=== PATIENT | male | born 1975 | race Caucasian/White ===

== ENCOUNTER 2020-07-22 04:58 | Inpatient (IN) | payer OTHER ==
[~2020-07-22] VITALS: Ht 165.1 cm; Wt 80.7 kg
[2020-07-22] MEDS ORDERED: MORPHINE SULFATE 4 MG/ML CPJ (NOT FOR IM USE) IV STA (06:35)
[2020-07-22 06:46] LABS: BASOPHILS % 0.4 % (0.0-2.0); EOSINOPHILS % 3.2 % (0.0-5.0); HEMATOCRIT. 32.3 % (42.0-52.0); LYMPHOCYTES % 14.4 % (20.0-50.0); MEAN CORPUSCULAR HEMOGLOBIN 32.8 pg (28.0-32.0); MEAN CORPUSCULAR VOLUME 96.7 fL (80.0-94.0); MEAN PLATELET VOLUME 7.9 fl (7.4-10.4); MONOCYTES % 7.7 % (2.0-8.0); NEUTROPHILS % 74.3 % (40.0-76.0); PLATELET 272 x1000/uL (130-400); RED BLOOD CELL COUNT 3.34 mill/uL (4.7-6.1); RED CELL DISTRIBUTION WIDTH 14.5 % (11.6-14.6)
[2020-07-22 06:52] LABS: CHLORIDE 112 mEq/L (98-107)
[2020-07-22 06:57] LABS: PROTHROMBIN TIME 10.3 sec (9.6-11.0)
[2020-07-22] MEDS ORDERED: CLONIDINE 0.1MG TABLET PO PRN (13:15)
[2020-07-22] MEDS ORDERED: IPRATROPIUM/ALBUTEROL 0.5-3(2.5)MG/3ML NEB HHN PRN (13:15)
[2020-07-22] MEDS ORDERED: DIPHENHYDRAMINE 50MG/ML VIAL IV PRN (13:15)
[2020-07-22 14:28] LABS: PHOSPHORUS 6.8 mg/dL (2.5-4.9)
[2020-07-22 15:39] VITALS: BP 174/103
[2020-07-22] MEDS ORDERED: CLONIDINE 0.1MG TABLET PO NR (16:23)
[2020-07-22] MEDS ORDERED: CLON0.1T PO (17:09)
[2020-07-22] MEDS ORDERED: ATOR20TA65 MT (17:09)
[2020-07-22] MEDS ORDERED: ASPI-1497 PO (17:10)
[2020-07-22] MEDS: LISINOPRIL 40MG TABLET PO SCH (17:36)
[2020-07-22 20:42] VITALS: BP 124/85
[2020-07-23] VITALS: BP 121/82
[2020-07-23] MEDS: ACETAMINOPHEN 325MG TABLET PO PRN ×2 (01:08→07:22)
[2020-07-23 04:00] VITALS: BP 116/79
[2020-07-23 08:00] VITALS: BP 131/70
[2020-07-23 08:16] LABS: BASOPHILS % 0.8 % (0.0-2.0); EOSINOPHILS % 2.8 % (0.0-5.0); HEMATOCRIT. 31.1 % (42.0-52.0); HEMOGLOBIN. 10.8 g/dL (14.0-18.0); LYMPHOCYTES % 19.5 % (20.0-50.0); MEAN CORPUSCULAR HEMOGLOBIN 32.9 pg (28.0-32.0); MEAN CORPUSCULAR VOLUME 94.7 fL (80.0-94.0); MEAN PLATELET VOLUME 7.9 fl (7.4-10.4); MONOCYTES % 8.1 % (2.0-8.0); NEUTROPHILS % 68.8 % (40.0-76.0); PLATELET 269 x1000/uL (130-400); RED BLOOD CELL COUNT 3.29 mill/uL (4.7-6.1); RED CELL DISTRIBUTION WIDTH 14.3 % (11.6-14.6)
[2020-07-23] MEDS: LISINOPRIL 40MG TABLET PO SCH (08:30)
[2020-07-23 09:00] LABS: CHLORIDE 104 mEq/L (98-107)
[2020-07-23 09:08] LABS: PHOSPHORUS 5.6 mg/dL (2.5-4.9)
[2020-07-23 09:09] LABS: LDL CHOLESTEROL 77 mg/dL (5-100)
[2020-07-23 09:11] LABS: HDL CHOLESTEROL 32 mg/dL (40-59)
[2020-07-23 11:18] VITALS: BP 131/75
== END 2020-07-23 11:45 | disposition home or self-care (01) | DRG 470 ==
LOC: ER 05:23 → 6WST 12:04 → EDBEDREQ 12:27 → ENRESERV 14:59
PROVIDERS: ADMIT Internal Medicine; ATTEND Internal Medicine
PROC: 5A1D70Z Performance of Urinary Filtration, Intermittent, Less than 6 Hours Per Day (ICD-10-PCS; principal; 2020-07-22)
DX: I12.0 Hypertensive chronic kidney disease with stage 5 chronic kidney disease or end stage renal disease (principal); N18.6 End stage renal disease; D64.9 Anemia, unspecified; E78.5 Hyperlipidemia, unspecified; E87.2 Acidosis; Z99.2 Dependence on renal dialysis
CPT/HCPCS: 36415; 71045; 80053; 80061; 83735; 84100; 84443; 85025; 93005; 99285; J2270

== ENCOUNTER 2020-09-27 01:31 | Emergency (ER) | payer OTHER ==
[~2020-09-27] VITALS: Ht 172.7 cm; Wt 80.0 kg
[~2020-09-27 01:31] MED LIST: ASPI-1497 PO; ATOR20TA65 MT; CLON0.1T PO
[2020-09-27 02:40] LABS: BASOPHILS % 0.8 % (0.0-2.0); EOSINOPHILS % 2.6 % (0.0-5.0); HEMATOCRIT. 35.7 % (42.0-52.0); HEMOGLOBIN. 12.1 g/dL (14.0-18.0); LYMPHOCYTES % 18.8 % (20.0-50.0); MEAN CORPUSCULAR HEMOGLOBIN 31.8 pg (28.0-32.0); MEAN CORPUSCULAR VOLUME 93.7 fL (80.0-94.0); MEAN PLATELET VOLUME 7.6 fl (7.4-10.4); MONOCYTES % 6.2 % (2.0-8.0); NEUTROPHILS % 71.6 % (40.0-76.0); PLATELET 253 x1000/uL (130-400); RED BLOOD CELL COUNT 3.81 mill/uL (4.7-6.1); RED CELL DISTRIBUTION WIDTH 14.7 % (11.6-14.6)
[2020-09-27 02:45] LABS: CHLORIDE 102 mEq/L (98-107)
[2020-09-27 02:50] LABS: ETHANOL BLOOD 213 mg/dL
[2020-09-27 09:08] VITALS: BP 155/90
== END 2020-09-27 09:51 | disposition home or self-care (01) ==
LOC: ER 01:31
DX: F10.129 Alcohol abuse with intoxication, unspecified (principal); I12.0 Hypertensive chronic kidney disease with stage 5 chronic kidney disease or end stage renal disease; N18.6 End stage renal disease; Z79.82 Long term (current) use of aspirin; Y90.7 Blood alcohol level of 200-239 mg/100 ml
CPT/HCPCS: 36415; 70450; 71045; 80053; 80320; 84484; 85025; 93005; 99285; Z7610; G0480

== ENCOUNTER 2021-04-11 09:53 | Emergency (ER) | payer OTHER ==
[~2021-04-11] VITALS: Ht 165.1 cm; Wt 76.0 kg
[2021-04-11] MEDS ORDERED: CLONIDINE 0.2MG TABLET PO ONE (10:30)
[2021-04-11] MEDS ORDERED: ACETAMINOPHEN 325MG TABLET PO ONE (10:30)
[2021-04-11] MEDS ORDERED: ACET-2708 MT (11:18)
[2021-04-11 11:29] VITALS: BP 165/89
== END 2021-04-11 11:37 | disposition home or self-care (01) ==
LOC: ER 09:53
DX: M79.645 Pain in left finger(s) (principal); I10 Essential (primary) hypertension
CPT/HCPCS: 73140; 99283

== ENCOUNTER 2021-08-01 20:55 | Emergency (ER) | payer MEDICAID, OTHER ==
[~2021-08-01] VITALS: Ht 165.1 cm; Wt 76.0 kg
[~2021-08-01 20:55] MED LIST changes: +ACET-2708 MT
[2021-08-02 02:37] LABS: BASOPHILS % 1.1 % (0.0-2.0); EOSINOPHILS % 2.8 % (0.0-5.0); LYMPHOCYTES % 17.1 % (20.0-50.0); MEAN CORPUSCULAR HEMOGLOBIN 30.5 pg (28.0-32.0); MEAN CORPUSCULAR VOLUME 90.9 fL (80.0-94.0); MEAN PLATELET VOLUME 8.1 fl (7.4-10.4); MONOCYTES % 10.4 % (2.0-8.0); NEUTROPHILS % 68.6 % (40.0-76.0); PLATELET 322 x1000/uL (130-400); RED BLOOD CELL COUNT 2.97 mill/uL (4.7-6.1); RED CELL DISTRIBUTION WIDTH 15.4 % (11.6-14.6)
[2021-08-02 03:30] VITALS: BP 199/114
[2021-08-02] MEDS ORDERED: DIPHENHYDRAMINE 25MG CAPSULE PO ONE (03:45)
== END 2021-08-02 04:00 | disposition home or self-care (01) ==
LOC: ER 20:55
DX: I12.0 Hypertensive chronic kidney disease with stage 5 chronic kidney disease or end stage renal disease (principal); N18.6 End stage renal disease; Z99.2 Dependence on renal dialysis; Z79.82 Long term (current) use of aspirin; Z87.891 Personal history of nicotine dependence
CPT/HCPCS: 36415; 80048; 85025; 93005; 99283; Q0163; A4565

== ENCOUNTER 2021-08-06 09:00 | Inpatient (IN) | payer OTHER ==
[~2021-08-06] VITALS: Ht 165.1 cm; Wt 71.7 kg
[2021-08-06 10:04] LABS: CHLORIDE 106 mEq/L (98-107)
[2021-08-06 10:08] LABS: BASOPHILS % 1.5 % (0.0-2.0); EOSINOPHILS % 4.3 % (0.0-5.0); HEMATOCRIT. 25.2 % (42.0-52.0); HEMOGLOBIN. 8.4 g/dL (14.0-18.0); LYMPHOCYTES % 20.4 % (20.0-50.0); MEAN CORPUSCULAR HEMOGLOBIN 31.4 pg (28.0-32.0); MEAN CORPUSCULAR VOLUME 94.8 fL (80.0-94.0); MEAN PLATELET VOLUME 8.5 fl (7.4-10.4); MONOCYTES % 8.8 % (2.0-8.0); PLATELET 276 x1000/uL (130-400); RED BLOOD CELL COUNT 2.66 mill/uL (4.7-6.1); RED CELL DISTRIBUTION WIDTH 15.9 % (11.6-14.6)
[2021-08-06] MEDS ORDERED: FUROSEMIDE 100MG/10ML VIAL IV STA (11:06)
[2021-08-06] MEDS ORDERED: SODIUM POLYSTYRENE SULFONATE 15 G/60 ML BOT PO ONE (11:15)
[2021-08-06] MEDS ORDERED: INSULIN REGULAR (HUMULIN R) 300UNITS/3ML VIAL IV ONE (11:15)
[2021-08-06] MEDS ORDERED: SODIUM BICARBONATE 8.4% 1 MEQ/ML 50ML SYR IV ONE (11:15)
[2021-08-06] MEDS ORDERED: CALCIUM CHLORIDE 1GM/10ML SYR IV ONE (11:15)
[2021-08-06] MEDS ORDERED: DEXTROSE 50% WATER 50ML SYRINGE IV ONE (11:15)
[2021-08-06] MEDS ORDERED: ALBUTEROL (0.083%) 2.5MG/3ML NEB HHN ONE (11:15)
[2021-08-06] MEDS ORDERED: SODIUM POLYSTYRENE SULFONATE 15 G/60 ML BOT PO NR (13:30)
[2021-08-06] MEDS ORDERED: SODIUM BICARBONATE 8.4% 1 MEQ/ML 50ML SYR IV NR (13:30)
[2021-08-06 15:08] LABS: HEPATITIS B SURFACE ANTIGEN NEGATIVE
[2021-08-06] MEDS: NIFEDIPINE XL 60MG TAB PO SCH (15:40)
[2021-08-06] MEDS ORDERED: HEPARIN SODIUM 1,000 UNIT/1ML VIAL IV NR (16:45)
[2021-08-06] MEDS ORDERED: LABETALOL 5MG/ML SYR 20 MG/4 ML SYRINGE IV NR (18:00)
[2021-08-06] MEDS: HYDRALAZINE HCL 50MG TABLET PO SCH (21:31)
[2021-08-07] VITALS: BP 144/77
[2021-08-07] MEDS: CLONIDINE 0.1MG TABLET PO PRN ×3 (00:28→18:39)
[2021-08-07] MEDS: ACETAMINOPHEN 325MG TABLET PO PRN ×3 (00:29→12:30)
[2021-08-07] MEDS: ONDANSETRON HCL 4MG/2ML INJ IV PRN (04:54)
[2021-08-07 07:00] LABS: BASOPHILS % 1.4 % (0.0-2.0); EOSINOPHILS % 3.7 % (0.0-5.0); HEMATOCRIT. 26.9 % (42.0-52.0); HEMOGLOBIN. 9.2 g/dL (14.0-18.0); MEAN CORPUSCULAR HEMOGLOBIN 30.9 pg (28.0-32.0); MEAN CORPUSCULAR VOLUME 90.3 fL (80.0-94.0); MEAN PLATELET VOLUME 8.5 fl (7.4-10.4); MONOCYTES % 8.5 % (2.0-8.0); NEUTROPHILS % 70.4 % (40.0-76.0); PLATELET 302 x1000/uL (130-400); RED BLOOD CELL COUNT 2.98 mill/uL (4.7-6.1); RED CELL DISTRIBUTION WIDTH 15.6 % (11.6-14.6)
[2021-08-07 07:54] LABS: PHOSPHORUS 8.2 mg/dL (2.5-4.9)
[2021-08-07 08:00] VITALS: BP 162/102
[2021-08-07] MEDS: HYDRALAZINE HCL 50MG TABLET PO SCH (09:36)
[2021-08-07] MEDS: NIFEDIPINE XL 60MG TAB PO SCH ×2 (09:36→20:49)
[2021-08-07 12:00] VITALS: BP 146/79
[2021-08-07] MEDS: CALCIUM ACETATE 667MG CAPSULE PO SCH ×2 (12:15→18:12)
[2021-08-07 16:00] VITALS: BP 152/80
[2021-08-07 20:42] VITALS: BP 157/101
[2021-08-07] MEDS: HYDRALAZINE HCL 100MG TABLET PO SCH (20:49)
[2021-08-07] MEDS ORDERED: EPOETIN ALFA-EPBX 4,000 UNIT/ML VIAL SUBCUT SCH (21:00)
[2021-08-08] VITALS: BP 171/98
[2021-08-08 04:00] VITALS: BP 157/110
[2021-08-08] MEDS: CLONIDINE 0.1MG TABLET PO PRN (05:04)
[2021-08-08 07:21] LABS: BASOPHILS % 1.5 % (0.0-2.0); EOSINOPHILS % 4.3 % (0.0-5.0); HEMATOCRIT. 27.5 % (42.0-52.0); HEMOGLOBIN. 9.5 g/dL (14.0-18.0); LYMPHOCYTES % 23.1 % (20.0-50.0); MEAN CORPUSCULAR HEMOGLOBIN 31.1 pg (28.0-32.0); MEAN CORPUSCULAR VOLUME 90.2 fL (80.0-94.0); MEAN PLATELET VOLUME 8.5 fl (7.4-10.4); MONOCYTES % 7.8 % (2.0-8.0); NEUTROPHILS % 63.3 % (40.0-76.0); PLATELET 311 x1000/uL (130-400); RED BLOOD CELL COUNT 3.04 mill/uL (4.7-6.1); RED CELL DISTRIBUTION WIDTH 15.3 % (11.6-14.6)
[2021-08-08 07:51] LABS: PHOSPHORUS 8.2 mg/dL (2.5-4.9)
[2021-08-08 08:00] VITALS: BP 155/101
[2021-08-08] MEDS: HYDRALAZINE HCL 100MG TABLET PO SCH ×3 (08:31→21:37)
[2021-08-08] MEDS: CALCIUM ACETATE 667MG CAPSULE PO SCH ×3 (08:31→17:45)
[2021-08-08] MEDS: NIFEDIPINE XL 60MG TAB PO SCH ×2 (08:31→21:37)
[2021-08-08] MEDS ORDERED: OMEP20CA14 PO (11:36)
[2021-08-08 12:00] VITALS: BP 145/90
[2021-08-08 16:00] VITALS: BP 159/94
[2021-08-08] MEDS: LOSARTAN POTASSIUM 100 MG TABLET PO SCH ×2 (16:30→17:44)
[2021-08-08] MEDS: OMEPRAZOLE 20MG CAPSULE EXTENDED RELEASE PO SCH (17:44)
[2021-08-08] MEDS: ACETAMINOPHEN 325MG TABLET PO PRN (17:45)
[2021-08-08] MEDS: ONDANSETRON HCL 4MG/2ML INJ IV PRN (18:19)
[2021-08-08] MEDS ORDERED: ZOLPIDEM TARTRATE 5MG TABLET PO PRN ×2 (19:45→20:00)
[2021-08-08 20:00] VITALS: BP 154/95
[2021-08-09] VITALS: BP 144/97
[2021-08-09] MEDS: ONDANSETRON HCL 4MG/2ML INJ IV PRN (02:22)
[2021-08-09] MEDS: LORAZEPAM 1MG TABLET PO PRN ×2 (03:43→09:28)
[2021-08-09] MEDS: CLONIDINE 0.1MG TABLET PO PRN (03:43)
[2021-08-09 04:00] VITALS: BP 183/99
[2021-08-09] MEDS: HYDRALAZINE HCL 100MG TABLET PO SCH ×2 (06:00→14:47)
[2021-08-09] MEDS: OMEPRAZOLE 20MG CAPSULE EXTENDED RELEASE PO SCH (06:46)
[2021-08-09 08:00] VITALS: BP 170/78
[2021-08-09] MEDS: NIFEDIPINE XL 60MG TAB PO SCH (08:40)
[2021-08-09] MEDS: CALCIUM ACETATE 667MG CAPSULE PO SCH ×2 (08:40→14:47)
[2021-08-09] MEDS: LOSARTAN POTASSIUM 100 MG TABLET PO SCH (08:40)
[2021-08-09] MEDS: ACETAMINOPHEN 325MG TABLET PO PRN (09:28)
[2021-08-09 09:46] LABS: PHOSPHORUS 5.8 mg/dL (2.5-4.9)
[2021-08-09 09:55] LABS: BASOPHILS % 1.3 % (0.0-2.0); EOSINOPHILS % 5.6 % (0.0-5.0); HEMATOCRIT. 27.8 % (42.0-52.0); HEMOGLOBIN. 9.6 g/dL (14.0-18.0); LYMPHOCYTES % 15.8 % (20.0-50.0); MEAN CORPUSCULAR HEMOGLOBIN 30.8 pg (28.0-32.0); MEAN CORPUSCULAR VOLUME 89.7 fL (80.0-94.0); MONOCYTES % 6.8 % (2.0-8.0); NEUTROPHILS % 70.5 % (40.0-76.0); PLATELET 323 x1000/uL (130-400); RED CELL DISTRIBUTION WIDTH 15.9 % (11.6-14.6)
[2021-08-09] MEDS ORDERED: CLONIDINE 0.1MG TABLET PO SCH (14:00)
[2021-08-09 14:07] VITALS: BP 155/73
== END 2021-08-09 16:49 | disposition home or self-care (01) | DRG 425 ==
LOC: ER 09:00 → MICUSO 12:55 → EDBEDREQ 13:06 → EDBEDREQTM 13:06 → 8WST 21:30
PROVIDERS: ADMIT Internal Medicine; ATTEND Internal Medicine
PROC: 5A1D70Z Performance of Urinary Filtration, Intermittent, Less than 6 Hours Per Day (ICD-10-PCS; principal; 2021-08-06)
PROC: 5A1D70Z Performance of Urinary Filtration, Intermittent, Less than 6 Hours Per Day (ICD-10-PCS; 2021-08-08)
DX: E87.5 Hyperkalemia (principal); E43 Unspecified severe protein-calorie malnutrition; I12.0 Hypertensive chronic kidney disease with stage 5 chronic kidney disease or end stage renal disease; E83.51 Hypocalcemia; I16.0 Hypertensive urgency; N18.6 End stage renal disease; D64.9 Anemia, unspecified; E78.5 Hyperlipidemia, unspecified; Z20.822 Contact with and (suspected) exposure to COVID-19; Z82.49 Family history of ischemic heart disease and other diseases of the circulatory system; Z68.26 Body mass index [BMI] 26.0-26.9, adult; Z99.2 Dependence on renal dialysis; Z79.899 Other long term (current) drug therapy; Z79.82 Long term (current) use of aspirin
CPT/HCPCS: 36415; 71045; 76770; 80048; 80053; 83735; 83880; 84100; 84484; 85025; 86705; 86706; 86709; 86803; 87340; 93005; 97161; 99291; J0885; J1644; J1815; J1940; J2405; J3490; U0003; U0005

== ENCOUNTER 2021-09-01 04:03 | Emergency (ER) | payer OTHER ==
[~2021-09-01] VITALS: Ht 165.1 cm; Wt 78.0 kg
[~2021-09-01 04:03] MED LIST changes: +OMEP20CA14 PO
[2021-09-01 05:56] LABS: EOSINOPHILS % 4.5 % (0.0-5.0); HEMATOCRIT. 24.5 % (42.0-52.0); HEMOGLOBIN. 8.4 g/dL (14.0-18.0); LYMPHOCYTES % 22.5 % (20.0-50.0); MEAN CORPUSCULAR HEMOGLOBIN 31.3 pg (28.0-32.0); MEAN CORPUSCULAR VOLUME 91.3 fL (80.0-94.0); MEAN PLATELET VOLUME 6.9 fl (7.4-10.4); MONOCYTES % 10.2 % (2.0-8.0); NEUTROPHILS % 61.8 % (40.0-76.0); PLATELET 256 x1000/uL (130-400); RED BLOOD CELL COUNT 2.69 mill/uL (4.7-6.1); RED CELL DISTRIBUTION WIDTH 16.4 % (11.6-14.6)
[2021-09-01 06:02] LABS: CHLORIDE 109 mEq/L (98-107)
[2021-09-01 06:02] LABS: CLARITY URINE CLEAR (CLEAR); COLOR URINE YELLOW (YELLOW); KETONES URINE NEGATIVE (NEGATIVE); LEUKOCYTE ESTERASE URINE NEGATIVE (NEGATIVE); NITRITE URINE NEGATIVE (NEGATIVE); OCCULT BLOOD URINE 1+ (NEGATIVE); PH URINE 8.5 (4.5-8.0); PROTEIN URINE 4+ (NEGATIVE); SPECIFIC GRAVITY URINE 1.017 (1.005-1.030); UROBILINOGEN URINE 0.2 E.U./dL (0.2-1.0)
[2021-09-01 06:06] LABS: PROTHROMBIN TIME 10.9 sec (9.6-11.0)
[2021-09-01] MEDS ORDERED: KETOROLAC 30MG/ML VIAL IV STA (06:08)
[2021-09-01] MEDS ORDERED: METOCLOPRAMIDE HCL 10MG/2ML VIAL IV ONE (06:15)
[2021-09-01 07:19] VITALS: BP 150/86
== END 2021-09-01 07:23 | disposition home or self-care (01) ==
LOC: ER 04:03
DX: D63.1 Anemia in chronic kidney disease (principal); I12.0 Hypertensive chronic kidney disease with stage 5 chronic kidney disease or end stage renal disease; N18.6 End stage renal disease; Z99.2 Dependence on renal dialysis; Z79.82 Long term (current) use of aspirin
CPT/HCPCS: 36415; 71045; 80053; 81003; 85025; 85610; 86850; 86900; 86901; 93005; 96374; 96375; 99285; J1885; J2765

== ENCOUNTER 2021-12-09 18:55 | Inpatient (IN) | payer OTHER, MEDICAID ==
[~2021-12-09] VITALS: Ht 172.7 cm; Wt 84.4 kg
[2021-12-09] MEDS ORDERED: ASPIRIN 325MG EC TABLET PO ONE (22:00)
[2021-12-09 22:09] LABS: BASOPHILS % 1.1 % (0.0-2.0); EOSINOPHILS % 6.5 % (0.0-5.0); HEMATOCRIT. 36.8 % (42.0-52.0); HEMOGLOBIN. 12.1 g/dL (14.0-18.0); LYMPHOCYTES % 22.6 % (20.0-50.0); MEAN CORPUSCULAR HEMOGLOBIN 28.9 pg (28.0-32.0); MEAN PLATELET VOLUME 6.8 fl (7.4-10.4); MONOCYTES % 9.5 % (2.0-8.0); NEUTROPHILS % 60.3 % (40.0-76.0); PLATELET 256 x1000/uL (130-400); RED BLOOD CELL COUNT 4.19 mill/uL (4.7-6.1); RED CELL DISTRIBUTION WIDTH 19.9 % (11.6-14.6)
[2021-12-09 22:14] LABS: CHLORIDE 99 mEq/L (98-107)
[2021-12-09] MEDS ORDERED: NICARDIPINE 50 MG in SODIUM CHLORIDE 0.9% 230 ML IV ONE (23:30)
[2021-12-09] MEDS ORDERED: HYDROCODONE/ACETAMINOPHEN 5/325MG TABLET PO ONE (23:45)
[2021-12-10] MEDS: NICARDIPINE 40 MG/200 ML PREMIX 200 ML IV PRN ×2 (00:18→09:04)
[2021-12-10] MEDS ORDERED: ACETAMINOPHEN 325MG TABLET PO PRN (08:45)
[2021-12-10] MEDS ORDERED: HYDROCODONE/ACETAMINOPHEN 10/325MG TABLET PO PRN (09:00)
[2021-12-10] MEDS: NIFEDIPINE XL 30MG TAB PO SCH (09:51)
[2021-12-10] MEDS: ASPIRIN 81MG TABLET PO SCH (09:51)
[2021-12-10] MEDS: ONDANSETRON HCL 4MG/2ML INJ IV PRN ×2 (10:12→21:04)
[2021-12-10 15:40] VITALS: BP_SYST 170; BP_DIAS 88; BP_DIAS 90
[2021-12-10] MEDS ORDERED: ASPIRIN 81MG TABLET PO SCH (17:00)
[2021-12-10] MEDS ORDERED: HYDROCODONE/ACETAMINOPHEN 5/325MG TABLET PO PRN (17:15)
[2021-12-10 18:20] VITALS: BP 188/107
[2021-12-10] MEDS: CLONIDINE 0.1MG TABLET PO PRN (18:24)
[2021-12-10] MEDS: CINACALCET HCL 30MG TABLET PO SCH (18:25)
[2021-12-10] MEDS: HYDROCODONE/ACETAMINOPHEN 10/325MG TABLET PO PRN (18:25)
[2021-12-10] MEDS: LABETALOL HCL 100MG TABLET PO SCH (18:26)
[2021-12-10] MEDS: LOSARTAN POTASSIUM 50 MG TABLET PO SCH (18:26)
[2021-12-10] MEDS: FUROSEMIDE 20MG TABLET PO SCH (18:26)
[2021-12-10] MEDS: CALCIUM ACETATE 667MG CAPSULE PO SCH (18:26)
[2021-12-10 20:00] VITALS: BP 162/97
[2021-12-11] VITALS (7 sets, daily range): BP systolic 118–197; BP diastolic 68–112
[2021-12-11] MEDS: CLONIDINE 0.1MG TABLET PO PRN ×5 (01:50→22:04)
[2021-12-11] MEDS: NIFEDIPINE XL 30MG TAB PO SCH (04:33)
[2021-12-11] MEDS: HYDROCODONE/ACETAMINOPHEN 10/325MG TABLET PO PRN ×3 (06:08→17:46)
[2021-12-11] MEDS: LABETALOL HCL 100MG TABLET PO SCH ×2 (09:33→17:47)
[2021-12-11] MEDS: ASPIRIN 81MG TABLET PO SCH (09:33)
[2021-12-11] MEDS: FUROSEMIDE 20MG TABLET PO SCH (09:34)
[2021-12-11] MEDS: LOSARTAN POTASSIUM 50 MG TABLET PO SCH ×2 (09:34→17:46)
[2021-12-11] MEDS: CALCIUM ACETATE 667MG CAPSULE PO SCH ×3 (09:36→17:47)
[2021-12-11] MEDS: ONDANSETRON HCL 4MG/2ML INJ IV PRN (12:45)
[2021-12-11] MEDS: CINACALCET HCL 30MG TABLET PO SCH (17:45)
[2021-12-11] MEDS: MINOXIDIL 2.5MG TABLET PO SCH ×2 (17:47→22:04)
[2021-12-11] MEDS ORDERED: MINOXIDIL 2.5MG TABLET PO SCH (21:00)
[2021-12-11] MEDS: DIPHENHYDRAMINE 50MG/ML VIAL IV PRN (22:03)
[2021-12-12] MEDS: CLONIDINE 0.1MG TABLET PO PRN ×2 (04:47→10:48)
[2021-12-12 08:00] VITALS: BP 201/107
[2021-12-12] MEDS: ASPIRIN 81MG TABLET PO SCH (08:18)
[2021-12-12] MEDS: LABETALOL HCL 100MG TABLET PO SCH (08:19)
[2021-12-12] MEDS: FUROSEMIDE 20MG TABLET PO SCH (08:20)
[2021-12-12] MEDS: LOSARTAN POTASSIUM 50 MG TABLET PO SCH ×2 (08:20→17:26)
[2021-12-12] MEDS: CALCIUM ACETATE 667MG CAPSULE PO SCH ×3 (08:22→17:26)
[2021-12-12] MEDS: MINOXIDIL 2.5MG TABLET PO SCH ×2 (08:36→20:28)
[2021-12-12] MEDS: HYDROCODONE/ACETAMINOPHEN 10/325MG TABLET PO PRN (08:42)
[2021-12-12] MEDS ORDERED: NIFEDIPINE XL 60MG TAB PO SCH (09:00)
[2021-12-12 12:00] VITALS: BP 152/83
[2021-12-12 16:00] VITALS: BP 155/88
[2021-12-12] MEDS ORDERED: NIFEDIPINE XL 30MG TAB PO NR (16:15)
[2021-12-12] MEDS: CINACALCET HCL 30MG TABLET PO SCH (17:26)
[2021-12-12 20:00] VITALS: BP 140/85
[2021-12-12] MEDS: NIFEDIPINE XL 60MG TAB PO SCH (20:28)
[2021-12-12] MEDS: DIPHENHYDRAMINE 50MG/ML VIAL IV PRN (20:28)
[2021-12-12] MEDS: METOPROLOL TARTRATE 50MG TABLET PO SCH (20:28)
[2021-12-12] MEDS ORDERED: TERAZOSIN HCL 5MG CAPSULE PO SCH (21:00)
[2021-12-13] VITALS (7 sets, daily range): BP systolic 121–167; BP diastolic 68–92
[2021-12-13] MEDS: HYDROCODONE/ACETAMINOPHEN 10/325MG TABLET PO PRN (02:43)
[2021-12-13] MEDS: DIPHENHYDRAMINE 50MG/ML VIAL IV PRN ×2 (04:28→12:48)
[2021-12-13] MEDS ORDERED: SODIUM POLYSTYRENE SULFONATE 15 G/60 ML BOT PO ONE (08:00)
[2021-12-13] MEDS ORDERED: SODIUM POLYSTYRENE SULFONATE 15 G/60 ML BOT PO NR (08:00)
[2021-12-13] MEDS: FUROSEMIDE 20MG TABLET PO SCH (08:33)
[2021-12-13] MEDS: ASPIRIN 81MG TABLET PO SCH (08:33)
[2021-12-13] MEDS: LOSARTAN POTASSIUM 50 MG TABLET PO SCH ×2 (08:33→16:58)
[2021-12-13] MEDS: CALCIUM ACETATE 667MG CAPSULE PO SCH ×3 (08:33→18:48)
[2021-12-13] MEDS: METOPROLOL TARTRATE 50MG TABLET PO SCH (08:34)
[2021-12-13] MEDS: NIFEDIPINE XL 60MG TAB PO SCH (08:34)
[2021-12-13] MEDS: MINOXIDIL 2.5MG TABLET PO SCH (08:35)
[2021-12-13] MEDS ORDERED: LOSA50TA3 PO (09:01)
[2021-12-13] MEDS ORDERED: METO-539 PO (09:01)
[2021-12-13] MEDS ORDERED: MINO2.5T19 PO (09:01)
[2021-12-13] MEDS ORDERED: NIFE-32 PO (09:01)
[2021-12-13] MEDS ORDERED: CLON1PAT10 TD (09:01)
[2021-12-13] MEDS ORDERED: TERA5CAP4 PO (09:01)
[2021-12-13] MEDS: CINACALCET HCL 30MG TABLET PO SCH (16:58)
[2021-12-13] MEDS ORDERED: CLONIDINE HCL 0.1MG/24HR PATCH TD ONE (18:45)
[2021-12-13] MEDS ORDERED: CLONIDINE HCL 0.1MG/24HR PATCH TD SCH (19:00)
[2021-12-13] MEDS ORDERED: CLON1PAT11 TP (20:07)
[2021-12-13] MEDS ORDERED: TERA5CAP4 MT (20:08)
[2021-12-13] MEDS ORDERED: MINO2.5T2 MT (20:08)
[2021-12-13] MEDS ORDERED: LOSA50TA41 MT (20:08)
[2021-12-13] MEDS ORDERED: METO-539 MT (20:08)
[2021-12-13] MEDS ORDERED: NIFE-32 MT (20:08)
== END 2021-12-13 21:05 | disposition home or self-care (01) | DRG 304 ==
LOC: ER 18:55 → MICUSO 23:32 → 6WST 12-10 15:20
PROVIDERS: ADMIT Internal Medicine; ATTEND Internal Medicine
PROC: 5A1D70Z Performance of Urinary Filtration, Intermittent, Less than 6 Hours Per Day (ICD-10-PCS; principal; 2021-12-11)
DX: I16.0 Hypertensive urgency (principal); N18.6 End stage renal disease; I47.1 Supraventricular tachycardia; E46 Unspecified protein-calorie malnutrition; R07.89 Other chest pain; I13.11 Hypertensive heart and chronic kidney disease without heart failure, with stage 5 chronic kidney disease, or end stage renal disease; I25.10 Atherosclerotic heart disease of native coronary artery without angina pectoris; I08.1 Rheumatic disorders of both mitral and tricuspid valves; I27.20 Pulmonary hypertension, unspecified; Z20.822 Contact with and (suspected) exposure to COVID-19; D64.9 Anemia, unspecified; Z99.2 Dependence on renal dialysis; I25.2 Old myocardial infarction; Z68.28 Body mass index [BMI] 28.0-28.9, adult; Z79.899 Other long term (current) drug therapy; Z79.82 Long term (current) use of aspirin
CPT/HCPCS: 36415; 71045; 80048; 80053; 83880; 84484; 85025; 87426; 93005; 93306; 99285; J1200; J2405; J3490; J7050

== ENCOUNTER 2022-03-18 14:15 | Inpatient (IN) | payer MEDICAID, OTHER ==
[~2022-03-18] VITALS: Ht 165.1 cm; Wt 80.0 kg
[~2022-03-18 14:15] MED LIST changes: -ATOR20TA65 MT; +ATOR20TA65 PO; +CLON1PAT10 TD; +CLON1PAT11 TP; +LOSA50TA3 PO; +LOSA50TA41 MT; +METO-539 MT; +METO-539 PO; +MINO2.5T19 PO; +MINO2.5T2 MT; +NIFE-32 MT; +NIFE-32 PO; +TERA5CAP4 MT; +TERA5CAP4 PO
[2022-03-18 17:27] LABS: BASOPHILS % 0.8 % (0.0-2.0); EOSINOPHILS % 3.8 % (0.0-5.0); HEMATOCRIT. 33.6 % (42.0-52.0); HEMOGLOBIN. 10.9 g/dL (14.0-18.0); LYMPHOCYTES % 20.1 % (20.0-50.0); MEAN CORPUSCULAR HEMOGLOBIN 28.9 pg (28.0-32.0); MEAN CORPUSCULAR VOLUME 88.5 fL (80.0-94.0); MONOCYTES % 11.8 % (2.0-8.0); NEUTROPHILS % 63.5 % (40.0-76.0); PLATELET 308 x1000/uL (130-400); RED BLOOD CELL COUNT 3.79 mill/uL (4.7-6.1); RED CELL DISTRIBUTION WIDTH 21.5 % (11.6-14.6)
[2022-03-18 17:43] LABS: CHLORIDE 105 mEq/L (98-107)
[2022-03-18] MEDS ORDERED: VANCOMYCIN 1G PREMIX 200 ML IV ONE (18:45)
[2022-03-18] MEDS ORDERED: PIPERACILLIN/TAZ 3.375G PREMIX 50 ML IV ONE (18:45)
[2022-03-18] MEDS ORDERED: SODIUM CHLORIDE 0.9% 1000ML BAG (SEPSIS BOLUS) IV ONE (18:45)
[2022-03-18] MEDS: HYDROCODONE/ACETAMINOPHEN 10/325MG TABLET PO PRN (20:40)
[2022-03-18 22:30] VITALS: BP 163/96
[2022-03-18 23:00] VITALS: BP 163/96
[2022-03-18] MEDS ORDERED: CINA90TA PO (23:30)
[2022-03-18] MEDS ORDERED: DIPH25TA23 PO (23:30)
[2022-03-18] MEDS ORDERED: FURO-151 PO (23:30)
[2022-03-18] MEDS ORDERED: CLON0.2T PO (23:30)
[2022-03-18] MEDS ORDERED: CALC667C PO (23:30)
[2022-03-18] MEDS ORDERED: LABE200T9 PO (23:30)
[2022-03-18] MEDS ORDERED: CYCL10TA7 PO (23:30)
[2022-03-18] MEDS ORDERED: LOSA25TA26 PO (23:30)
[2022-03-18] MEDS ORDERED: NIFE-32 PO (23:33)
[2022-03-18] MEDS ORDERED: METO-539 PO (23:33)
[2022-03-18] MEDS ORDERED: MINO2.5T19 PO (23:33)
[2022-03-18] MEDS ORDERED: ACETAMINOPHEN 325MG TABLET PO PRN (23:45)
[2022-03-18] MEDS ORDERED: ONDANSETRON HCL 4MG/2ML INJ IV PRN (23:45)
[2022-03-19] VITALS (7 sets, daily range): BP systolic 120–176; BP diastolic 74–97
[2022-03-19] MEDS: HYDROCODONE/ACETAMINOPHEN 10/325MG TABLET PO PRN ×4 (00:43→21:28)
[2022-03-19] MEDS ORDERED: VANCOMYCIN 500 MG in DEXT 5% WATER 100 ML IV NR (01:00)
[2022-03-19] MEDS: CLONIDINE 0.1MG TABLET PO PRN ×2 (05:28→22:15)
[2022-03-19] MEDS ORDERED: SEVELAMER CARBONATE 800 MG TABLET PO SCH (09:00)
[2022-03-19] MEDS: CALCIUM ACETATE 667MG CAPSULE PO SCH ×5 (09:00→17:35)
[2022-03-19] MEDS ORDERED: FUROSEMIDE 40MG/4ML VIAL IVP SCH (09:00)
[2022-03-19] MEDS ORDERED: ASPIRIN 81MG TABLET PO SCH (09:00)
[2022-03-19] MEDS: CLONIDINE 0.2MG TABLET PO SCH ×3 (09:00→17:00)
[2022-03-19 09:33] LABS: BASOPHILS % 0.8 % (0.0-2.0); EOSINOPHILS % 4.7 % (0.0-5.0); HEMATOCRIT. 31.4 % (42.0-52.0); HEMOGLOBIN. 10.4 g/dL (14.0-18.0); LYMPHOCYTES % 20.1 % (20.0-50.0); MEAN CORPUSCULAR VOLUME 87.6 fL (80.0-94.0); MONOCYTES % 10.6 % (2.0-8.0); NEUTROPHILS % 63.8 % (40.0-76.0); PLATELET 283 x1000/uL (130-400); RED BLOOD CELL COUNT 3.58 mill/uL (4.7-6.1); RED CELL DISTRIBUTION WIDTH 21.7 % (11.6-14.6)
[2022-03-19] MEDS: PIPERACILLIN/TAZOBACTAM 3.375 G in DEXTROSE 5% WATER 50 ML IV SCH ×2 (09:56→21:30)
[2022-03-19] MEDS: FOLIC ACID/VITAMIN B COMP W-C TABLET PO SCH (09:56)
[2022-03-19] MEDS: LOSARTAN POTASSIUM 25 MG TABLET PO SCH (09:57)
[2022-03-19] MEDS: LABETALOL HCL 200MG TABLET PO SCH ×2 (09:57→21:28)
[2022-03-19] MEDS: CINACALCET HCL 90MG TABLET PO SCH (10:00)
[2022-03-19] MEDS: DIPHENHYDRAMINE 50MG/ML VIAL IV PRN ×3 (10:15→23:40)
[2022-03-19] MEDS ORDERED: NALOXONE HCL 0.4MG/ML VIAL IV PRN (14:15)
[2022-03-19] MEDS: ENOXAPARIN 30MG/0.3ML SYR SUBCUT SCH (14:49)
[2022-03-19] MEDS ORDERED: CYCLOBENZAPRINE 10MG TABLET PO PRN (16:00)
[2022-03-19 16:59] LABS: HEPATITIS B SURFACE ANTIGEN NEGATIVE
[2022-03-19] MEDS: MINOXIDIL 2.5MG TABLET PO SCH (17:00)
[2022-03-19 18:12] LABS: PARTIAL THROMBOPLASTIN TIME 38.8 sec (23.4-31.0); PROTHROMBIN TIME 10.9 sec (9.6-11.0)
[2022-03-19] MEDS: HYDROCODONE/ACETAMINOPHEN 5/325MG TABLET PO PRN (22:26)
[2022-03-20] VITALS: BP 154/76
[2022-03-20 04:00] VITALS: BP 138/74
[2022-03-20] MEDS ORDERED: LIDOCAINE HCL/PF 1% 10 MG/ML 5ML VIAL ONE ×2 (07:19→07:48)
[2022-03-20 07:42] LABS: HEMATOCRIT. 31.5 % (42.0-52.0); HEMOGLOBIN. 10.3 g/dL (14.0-18.0); MEAN CORPUSCULAR HEMOGLOBIN 28.8 pg (28.0-32.0); MEAN CORPUSCULAR VOLUME 87.8 fL (80.0-94.0); MEAN PLATELET VOLUME 7.1 fl (7.4-10.4); PLATELET 243 x1000/uL (130-400); RED BLOOD CELL COUNT 3.58 mill/uL (4.7-6.1); RED CELL DISTRIBUTION WIDTH 22.3 % (11.6-14.6)
[2022-03-20 08:00] VITALS: BP 151/85
[2022-03-20 08:53] LABS: PHOSPHORUS 3.6 mg/dL (2.5-4.9)
[2022-03-20] MEDS: CLONIDINE 0.2MG TABLET PO SCH ×2 (09:00→17:00)
[2022-03-20] MEDS: ATORVASTATIN CALCIUM 20MG TABLET PO SCH (09:00)
[2022-03-20] MEDS: CINACALCET HCL 90MG TABLET PO SCH (09:05)
[2022-03-20] MEDS: NIFEDIPINE XL 60MG TAB PO SCH (09:05)
[2022-03-20] MEDS: CALCIUM ACETATE 667MG CAPSULE PO SCH ×3 (09:06→17:41)
[2022-03-20] MEDS: ASPIRIN 81MG EC TABLET PO SCH (09:06)
[2022-03-20] MEDS: OMEPRAZOLE 20MG CAPSULE EXTENDED RELEASE PO SCH (09:06)
[2022-03-20] MEDS: FOLIC ACID/VITAMIN B COMP W-C TABLET PO SCH (09:06)
[2022-03-20] MEDS: MINOXIDIL 2.5MG TABLET PO SCH ×2 (09:07→17:42)
[2022-03-20] MEDS: FUROSEMIDE 40MG TABLET PO SCH (09:07)
[2022-03-20] MEDS: LOSARTAN POTASSIUM 25 MG TABLET PO SCH (09:07)
[2022-03-20] MEDS: PIPERACILLIN/TAZOBACTAM 3.375 G in DEXTROSE 5% WATER 50 ML IV SCH ×2 (09:21→20:53)
[2022-03-20] MEDS: LABETALOL HCL 200MG TABLET PO SCH ×2 (09:28→20:54)
[2022-03-20] MEDS ORDERED: DEXTROSE 50% WATER 50ML SYRINGE IV NR (11:00)
[2022-03-20] MEDS ORDERED: SODIUM BICARBONATE 8.4% 1 MEQ/ML 50ML SYR IV NR (11:00)
[2022-03-20] MEDS ORDERED: CALCIUM CHLORIDE 1,000 MG in DEXT 5% WATER 90 ML IV NR (11:15)
[2022-03-20] MEDS ORDERED: INSULIN REGULAR (HUMULIN R) UD 100 UNITS/ML SYR IV NR (11:15)
[2022-03-20] MEDS ORDERED: SODIUM POLYSTYRENE SULFONATE 15 G/60 ML BOT PO NR (11:15)
[2022-03-20 12:00] VITALS: BP 130/68
[2022-03-20 16:00] VITALS: BP 113/70
[2022-03-20] MEDS: ENOXAPARIN 30MG/0.3ML SYR SUBCUT SCH (17:41)
[2022-03-20] MEDS: HYDROCODONE/ACETAMINOPHEN 10/325MG TABLET PO PRN ×2 (17:46→21:58)
[2022-03-20 20:00] VITALS: BP 132/73
[2022-03-20] MEDS: DIPHENHYDRAMINE 50MG/ML VIAL IV PRN (20:53)
[2022-03-20] MEDS ORDERED: VANCOMYCIN 750MG PMX (XELLIA) 150 ML IV NR (21:00)
[2022-03-20] MEDS ORDERED: VANCOMYCIN 750MG PREMIX 150 ML IV SCH (21:00)
[2022-03-20 21:37] LABS: PLATELET ESTIMATE NORMAL
[2022-03-21] VITALS: BP 108/55
[2022-03-21] MEDS: DIPHENHYDRAMINE 50MG/ML VIAL IV PRN ×4 (03:08→21:30)
[2022-03-21 04:00] VITALS: BP 112/49
[2022-03-21] MEDS: OMEPRAZOLE 20MG CAPSULE EXTENDED RELEASE PO SCH (06:46)
[2022-03-21 07:45] LABS: BASOPHILS % 0.7 % (0.0-2.0); EOSINOPHILS % 3.5 % (0.0-5.0); HEMATOCRIT. 31.4 % (42.0-52.0); HEMOGLOBIN. 10.4 g/dL (14.0-18.0); LYMPHOCYTES % 13.3 % (20.0-50.0); MEAN PLATELET VOLUME 7.3 fl (7.4-10.4); MONOCYTES % 7.7 % (2.0-8.0); NEUTROPHILS % 74.8 % (40.0-76.0); PLATELET 217 x1000/uL (130-400); RED BLOOD CELL COUNT 3.57 mill/uL (4.7-6.1); RED CELL DISTRIBUTION WIDTH 22.2 % (11.6-14.6)
[2022-03-21 08:00] VITALS: BP 148/78
[2022-03-21] MEDS: FOLIC ACID/VITAMIN B COMP W-C TABLET PO SCH (08:10)
[2022-03-21] MEDS: CALCIUM ACETATE 667MG CAPSULE PO SCH ×3 (08:10→16:47)
[2022-03-21] MEDS: ASPIRIN 81MG EC TABLET PO SCH (08:10)
[2022-03-21] MEDS: FUROSEMIDE 40MG TABLET PO SCH (08:10)
[2022-03-21] MEDS: LOSARTAN POTASSIUM 25 MG TABLET PO SCH (08:10)
[2022-03-21] MEDS: CINACALCET HCL 90MG TABLET PO SCH (08:10)
[2022-03-21] MEDS: HYDROCODONE/ACETAMINOPHEN 10/325MG TABLET PO PRN ×3 (08:11→20:22)
[2022-03-21] MEDS: CLONIDINE 0.2MG TABLET PO SCH ×2 (08:31→16:47)
[2022-03-21] MEDS: MINOXIDIL 2.5MG TABLET PO SCH ×3 (08:31→16:47)
[2022-03-21] MEDS: PIPERACILLIN/TAZOBACTAM 3.375 G in DEXTROSE 5% WATER 50 ML IV SCH ×2 (08:31→20:21)
[2022-03-21] MEDS: NIFEDIPINE XL 60MG TAB PO SCH ×2 (08:32→12:08)
[2022-03-21] MEDS: LABETALOL HCL 200MG TABLET PO SCH ×3 (08:32→20:21)
[2022-03-21] MEDS: ATORVASTATIN CALCIUM 20MG TABLET PO SCH ×2 (09:00→09:05)
[2022-03-21 12:00] VITALS: BP 169/86
[2022-03-21] MEDS ORDERED: VANCOMYCIN 750MG PREMIX 150 ML IV NR (12:00)
[2022-03-21] MEDS: ENOXAPARIN 30MG/0.3ML SYR SUBCUT SCH (14:04)
[2022-03-21 16:01] VITALS: BP 150/88
[2022-03-21 20:00] VITALS: BP 139/80
[2022-03-22] VITALS: BP 112/59
[2022-03-22 04:00] VITALS: BP 156/86
[2022-03-22] MEDS: DIPHENHYDRAMINE 50MG/ML VIAL IV PRN ×3 (04:25→19:12)
[2022-03-22 07:30] LABS: BASOPHILS % 1.1 % (0.0-2.0); EOSINOPHILS % 3.6 % (0.0-5.0); HEMOGLOBIN. 10.3 g/dL (14.0-18.0); LYMPHOCYTES % 15.7 % (20.0-50.0); MEAN CORPUSCULAR HEMOGLOBIN 29.1 pg (28.0-32.0); MEAN CORPUSCULAR VOLUME 88.1 fL (80.0-94.0); MEAN PLATELET VOLUME 7.2 fl (7.4-10.4); MONOCYTES % 7.2 % (2.0-8.0); NEUTROPHILS % 72.4 % (40.0-76.0); PLATELET 222 x1000/uL (130-400); RED BLOOD CELL COUNT 3.52 mill/uL (4.7-6.1); RED CELL DISTRIBUTION WIDTH 22.3 % (11.6-14.6)
[2022-03-22 08:00] VITALS: BP 146/68
[2022-03-22] MEDS: CINACALCET HCL 90MG TABLET PO SCH (08:23)
[2022-03-22] MEDS: PIPERACILLIN/TAZOBACTAM 3.375 G in DEXTROSE 5% WATER 50 ML IV SCH ×2 (08:23→21:32)
[2022-03-22] MEDS: FAMOTIDINE 20MG TABLET PO SCH (08:24)
[2022-03-22] MEDS: FOLIC ACID/VITAMIN B COMP W-C TABLET PO SCH (08:24)
[2022-03-22] MEDS: ATORVASTATIN CALCIUM 20MG TABLET PO SCH (08:24)
[2022-03-22] MEDS: FUROSEMIDE 40MG TABLET PO SCH (08:24)
[2022-03-22] MEDS: NIFEDIPINE XL 60MG TAB PO SCH (08:24)
[2022-03-22] MEDS: ASPIRIN 81MG EC TABLET PO SCH (08:24)
[2022-03-22] MEDS: MINOXIDIL 2.5MG TABLET PO SCH ×2 (08:25→16:16)
[2022-03-22] MEDS: LABETALOL HCL 200MG TABLET PO SCH ×2 (08:25→21:31)
[2022-03-22] MEDS: LOSARTAN POTASSIUM 50 MG TABLET PO SCH (08:40)
[2022-03-22] MEDS: CALCIUM ACETATE 667MG CAPSULE PO SCH ×3 (08:40→16:15)
[2022-03-22] MEDS: HYDROCODONE/ACETAMINOPHEN 10/325MG TABLET PO PRN ×2 (08:41→21:32)
[2022-03-22] MEDS: CLONIDINE 0.2MG TABLET PO SCH ×2 (08:58→16:16)
[2022-03-22 11:57] VITALS: BP 153/87
[2022-03-22] MEDS ORDERED: SODIUM POLYSTYRENE SULFONATE 15 G/60 ML BOT PO NR (14:30)
[2022-03-22] MEDS: ENOXAPARIN 30MG/0.3ML SYR SUBCUT SCH (14:53)
[2022-03-22 16:00] VITALS: BP 123/75
[2022-03-22 20:00] VITALS: BP 132/76
[2022-03-23] VITALS (26 sets, daily range): BP systolic 116–200; BP diastolic 71–108
[2022-03-23] MEDS: DIPHENHYDRAMINE 50MG/ML VIAL IV PRN ×4 (01:01→23:53)
[2022-03-23 08:14] LABS: EOSINOPHILS % 4.8 % (0.0-5.0); HEMATOCRIT. 30.2 % (42.0-52.0); LYMPHOCYTES % 18.7 % (20.0-50.0); MEAN CORPUSCULAR VOLUME 87.9 fL (80.0-94.0); MEAN PLATELET VOLUME 7.5 fl (7.4-10.4); MONOCYTES % 6.9 % (2.0-8.0); NEUTROPHILS % 68.6 % (40.0-76.0); PLATELET 217 x1000/uL (130-400); RED BLOOD CELL COUNT 3.44 mill/uL (4.7-6.1); RED CELL DISTRIBUTION WIDTH 21.6 % (11.6-14.6)
[2022-03-23] MEDS: ATORVASTATIN CALCIUM 20MG TABLET PO SCH (08:14)
[2022-03-23] MEDS: LOSARTAN POTASSIUM 50 MG TABLET PO SCH (08:14)
[2022-03-23] MEDS: CINACALCET HCL 90MG TABLET PO SCH (08:14)
[2022-03-23] MEDS: NIFEDIPINE XL 60MG TAB PO SCH (08:14)
[2022-03-23] MEDS: FOLIC ACID/VITAMIN B COMP W-C TABLET PO SCH (08:14)
[2022-03-23] MEDS: FAMOTIDINE 20MG TABLET PO SCH (08:15)
[2022-03-23] MEDS: ASPIRIN 81MG EC TABLET PO SCH (08:15)
[2022-03-23] MEDS: FUROSEMIDE 40MG TABLET PO SCH (08:15)
[2022-03-23] MEDS: CLONIDINE 0.2MG TABLET PO SCH ×2 (08:15→16:50)
[2022-03-23] MEDS: MINOXIDIL 2.5MG TABLET PO SCH (08:15)
[2022-03-23] MEDS: HYDROCODONE/ACETAMINOPHEN 5/325MG TABLET PO PRN ×3 (08:16→23:53)
[2022-03-23] MEDS: CALCIUM ACETATE 667MG CAPSULE PO SCH ×3 (08:55→16:49)
[2022-03-23] MEDS: PIPERACILLIN/TAZOBACTAM 3.375 G in DEXTROSE 5% WATER 50 ML IV SCH ×2 (08:55→20:15)
[2022-03-23] MEDS: LABETALOL HCL 200MG TABLET PO SCH ×2 (08:56→20:15)
[2022-03-23] MEDS: CLONIDINE 0.1MG TABLET PO PRN (09:49)
[2022-03-23] MEDS ORDERED: HYDRALAZINE 20MG/ML VIAL IV PRN (10:15)
[2022-03-23] MEDS ORDERED: NIFEDIPINE XL 30MG TAB PO NR (11:00)
[2022-03-23] MEDS ORDERED: LIDOCAINE HCL 1% 50ML VIAL (10MG/ML) ONE (12:45)
[2022-03-23] MEDS ORDERED: HEPARIN 1000 UNITS/ML 10ML ONE (12:45)
[2022-03-23] MEDS ORDERED: FENTANYL CITRATE/PF 50MCG/ML 2ML VIAL ONE (13:06)
[2022-03-23] MEDS ORDERED: FENTANYL CITRATE/PF 50MCG/ML 2ML VIAL IV ONE (14:15)
[2022-03-23] MEDS: ENOXAPARIN 30MG/0.3ML SYR SUBCUT SCH (15:00)
[2022-03-23] MEDS: HYDRALAZINE HCL 50MG TABLET PO SCH ×2 (15:45→21:12)
[2022-03-23] MEDS: MINOXIDIL 10MG TABLET PO SCH (17:48)
[2022-03-23] MEDS: HYDROCODONE/ACETAMINOPHEN 10/325MG TABLET PO PRN (20:16)
[2022-03-23 21:54] LABS: HEMATOCRIT 29.9 % (42.0-52.0); HEMOGLOBIN 9.9 g/dL (14.0-18.0)
[2022-03-24] VITALS: BP 140/81
[2022-03-24] MEDS ORDERED: SODIUM CHLORIDE 0.9% IV SCH ×2
[2022-03-24] MEDS ORDERED: DESMOPRESSIN ACETATE IV SCH ×2
[2022-03-24 04:00] VITALS: BP 118/66
[2022-03-24] MEDS: HYDRALAZINE HCL 50MG TABLET PO SCH ×2 (05:38→13:00)
[2022-03-24] MEDS: HYDROCODONE/ACETAMINOPHEN 5/325MG TABLET PO PRN (05:42)
[2022-03-24] MEDS: DIPHENHYDRAMINE 50MG/ML VIAL IV PRN ×2 (06:04→12:16)
[2022-03-24] MEDS: FAMOTIDINE 20MG TABLET PO SCH (06:51)
[2022-03-24 08:00] VITALS: BP 122/70
[2022-03-24] MEDS: LABETALOL HCL 200MG TABLET PO SCH (08:05)
[2022-03-24] MEDS ORDERED: HYDROCODONE/ACETAMINOPHEN 10/325MG TABLET PO NR (08:15)
[2022-03-24] MEDS: FOLIC ACID/VITAMIN B COMP W-C TABLET PO SCH (08:57)
[2022-03-24] MEDS: CINACALCET HCL 90MG TABLET PO SCH (08:57)
[2022-03-24] MEDS: CALCIUM ACETATE 667MG CAPSULE PO SCH ×2 (08:57→13:00)
[2022-03-24] MEDS: CLONIDINE 0.2MG TABLET PO SCH (08:58)
[2022-03-24] MEDS: ASPIRIN 81MG EC TABLET PO SCH (08:58)
[2022-03-24] MEDS: ATORVASTATIN CALCIUM 20MG TABLET PO SCH (08:59)
[2022-03-24] MEDS: MINOXIDIL 10MG TABLET PO SCH (08:59)
[2022-03-24] MEDS ORDERED: NIFEDIPINE XL 90MG TAB PO SCH (09:00)
[2022-03-24] MEDS ORDERED: HYDROCODONE/ACETAMINOPHEN 10/325MG TABLET PO PRN ×2 (11:15→12:30)
[2022-03-24] MEDS ORDERED: HYDR-4005 MT (11:27)
[2022-03-24 12:00] VITALS: BP 151/82
[2022-03-24 14:03] VITALS: BP 151/82
[2022-03-24] MEDS ORDERED: VANCOMYCIN 1GM PMX (XELLIA) 200 ML IV SCH (15:00)
== END 2022-03-24 17:15 | disposition home or self-care (01) | DRG 721 ==
LOC: ER 14:15 → 7WST 19:44 → EDBEDREQ 19:45 → EDBEDREQSVC 19:45 → EDBEDREQTM 19:45 → ENRESERV 22:54
PROVIDERS: ADMIT Internal Medicine; ATTEND Internal Medicine
PROC: 5A1D70Z Performance of Urinary Filtration, Intermittent, Less than 6 Hours Per Day (ICD-10-PCS; 2022-03-19)
PROC: 0JPT3XZ Removal of Tunneled Vascular Access Device from Trunk Subcutaneous Tissue and Fascia, Percutaneous Approach (ICD-10-PCS; principal; 2022-03-20)
PROC: 02PYX3Z Removal of Infusion Device from Great Vessel, External Approach (ICD-10-PCS; 2022-03-20)
PROC: 02HV33Z Insertion of Infusion Device into Superior Vena Cava, Percutaneous Approach (ICD-10-PCS; 2022-03-21)
PROC: B548ZZA Ultrasonography of Superior Vena Cava, Guidance (ICD-10-PCS; 2022-03-21)
PROC: 5A1D70Z Performance of Urinary Filtration, Intermittent, Less than 6 Hours Per Day (ICD-10-PCS; 2022-03-21)
PROC: 5A1D70Z Performance of Urinary Filtration, Intermittent, Less than 6 Hours Per Day (ICD-10-PCS; 2022-03-22)
PROC: 02PYX3Z Removal of Infusion Device from Great Vessel, External Approach (ICD-10-PCS; 2022-03-23)
PROC: 02H633Z Insertion of Infusion Device into Right Atrium, Percutaneous Approach (ICD-10-PCS; 2022-03-23)
PROC: 0JH63XZ Insertion of Tunneled Vascular Access Device into Chest Subcutaneous Tissue and Fascia, Percutaneous Approach (ICD-10-PCS; 2022-03-23)
PROC: B518ZZA Fluoroscopy of Superior Vena Cava, Guidance (ICD-10-PCS; 2022-03-23)
PROC: 5A1D70Z Performance of Urinary Filtration, Intermittent, Less than 6 Hours Per Day (ICD-10-PCS; 2022-03-24)
DX: T80.211A Bloodstream infection due to central venous catheter, initial encounter (principal); A41.2 Sepsis due to unspecified staphylococcus; I12.0 Hypertensive chronic kidney disease with stage 5 chronic kidney disease or end stage renal disease; N18.6 End stage renal disease; D63.8 Anemia in other chronic diseases classified elsewhere; J45.909 Unspecified asthma, uncomplicated; Y84.8 Other medical procedures as the cause of abnormal reaction of the patient, or of later complication, without mention of misadventure at the time of the procedure; E87.5 Hyperkalemia; Z99.2 Dependence on renal dialysis; I25.2 Old myocardial infarction; Y92.89 Other specified places as the place of occurrence of the external cause
CPT/HCPCS: 36415; 36556; 36558; 36589; 71045; 76937; 77001; 80048; 80053; 80076; 80202; 83605; 83735; 84100; 84132; 84145; 84484; 85014; 85018; 85025; 86705; 86709; 86803; 87070; 87077; 87186; 87340; 93005; 93970; 99152; 99153; 99285; C1750; C1752; C1769; C1887; J1200; J1644; J1650; J1815; J1940; J2405; J2543; J2597; J3010; J3370; J3490; J7030; J7060; G0500

== ENCOUNTER 2022-07-15 19:42 | Emergency (ER) | payer MEDICAID, OTHER ==
[~2022-07-15] VITALS: Ht 165.1 cm; Wt 76.8 kg
[~2022-07-15 19:42] MED LIST changes: -ACET-2708 MT; +CALC667C PO; +CINA90TA PO; -CLON0.1T PO; +CLON0.2T PO; -CLON1PAT10 TD; -CLON1PAT11 TP; +CYCL10TA21 PO; +DIPH25TA23 PO; +FURO-151 PO; +HYDR-4005 MT; +LABE200T9 PO; -LOSA50TA41 MT; -METO-539 MT; -MINO2.5T2 MT; -NIFE-32 MT; -OMEP20CA14 PO; -TERA5CAP4 MT; -TERA5CAP4 PO
[2022-07-15 20:44] VITALS: BP 203/110
[2022-07-16] MEDS ORDERED: KETOROLAC 30MG/ML VIAL IV STA (00:59)
[2022-07-16] MEDS ORDERED: FAMOTIDINE 20MG/2ML VIAL IV STA (00:59)
[2022-07-16] MEDS ORDERED: VISCOUS LIDOCAINE 2% 15 ML UDC PO STA (00:59)
[2022-07-16] MEDS ORDERED: MAGNESIUM/ALUMINUM HYDROXIDE/SIMETHICONE 30ML UDC PO STA (00:59)
== END 2022-07-16 02:36 | disposition left against medical advice (07) ==
LOC: ER 19:42
DX: R10.9 Unspecified abdominal pain (principal); F41.9 Anxiety disorder, unspecified; I12.9 Hypertensive chronic kidney disease with stage 1 through stage 4 chronic kidney disease, or unspecified chronic kidney disease; N18.9 Chronic kidney disease, unspecified; Z79.82 Long term (current) use of aspirin
CPT/HCPCS: 93005; 99281

== ENCOUNTER 2022-10-07 01:05 | Inpatient (IN) | payer OTHER ==
[2022-10-07] VITALS (15 sets, daily range): BP systolic 141–222; BP diastolic 71–112
[~2022-10-07] VITALS: Ht 165.1 cm; Wt 77.1 kg
[~2022-10-07 01:05] MED LIST changes: +TERA5CAP4 PO
[2022-10-07 05:18] LABS: BASOPHILS % 1.1 % (0.0-2.0); EOSINOPHILS % 5.7 % (0.0-5.0); HEMATOCRIT. 22.3 % (42.0-52.0); HEMOGLOBIN. 7.7 g/dL (14.0-18.0); LYMPHOCYTES % 15.3 % (20.0-50.0); MEAN CORPUSCULAR HEMOGLOBIN 30.8 pg (28.0-32.0); MEAN CORPUSCULAR VOLUME 89.5 fL (80.0-94.0); MEAN PLATELET VOLUME 7.6 fl (7.4-10.4); MONOCYTES % 10.6 % (2.0-8.0); NEUTROPHILS % 67.3 % (40.0-76.0); PLATELET 186 x1000/uL (130-400); RED BLOOD CELL COUNT 2.49 mill/uL (4.7-6.1); RED CELL DISTRIBUTION WIDTH 15.7 % (11.6-14.6)
[2022-10-07] MEDS ORDERED: ACETAMINOPHEN 325MG TABLET PO STA (07:03)
[2022-10-07] MEDS ORDERED: PIPERACILLIN/TAZ 3.375G PREMIX 50 ML IV ONE (07:30)
[2022-10-07] MEDS ORDERED: VANCOMYCIN 1G PREMIX 200 ML IV ONE (07:30)
[2022-10-07] MEDS ORDERED: GENTAMICIN 120MG PREMIX 100 ML IV NR (08:45)
[2022-10-07] MEDS: NIFEDIPINE XL 60MG TAB PO SCH ×2 (09:00→13:30)
[2022-10-07] MEDS: CINACALCET HCL 90MG TABLET PO SCH (09:00)
[2022-10-07] MEDS: LOSARTAN POTASSIUM 50 MG TABLET PO SCH ×3 (09:00→17:50)
[2022-10-07] MEDS: LABETALOL HCL 200MG TABLET PO SCH ×3 (09:00→20:52)
[2022-10-07] MEDS: ATORVASTATIN CALCIUM 20MG TABLET PO SCH (09:00)
[2022-10-07] MEDS: CALCIUM ACETATE 667MG CAPSULE PO SCH ×3 (09:00→17:50)
[2022-10-07 09:55] LABS: PROTHROMBIN TIME 11.2 sec (9.6-11.0)
[2022-10-07] MEDS ORDERED: DOCUSATE SODIUM 100MG CAPSULE PO PRN (12:15)
[2022-10-07] MEDS ORDERED: ACETAMINOPHEN 325MG TABLET PO PRN ×2 (12:15)
[2022-10-07] MEDS ORDERED: IPRATROPIUM/ALBUTEROL 0.5-3(2.5)MG/3ML NEB HHN PRN (12:15)
[2022-10-07] MEDS ORDERED: ONDANSETRON HCL 4MG/2ML INJ IV PRN (12:15)
[2022-10-07] MEDS ORDERED: LORAZEPAM 0.5MG TABLET PO PRN (12:15)
[2022-10-07] MEDS ORDERED: LIDOCAINE HCL 1% 30ML VIAL (10MG/ML) ONE (14:17)
[2022-10-07 14:45] LABS: HEPATITIS B SURFACE ANTIGEN NEGATIVE
[2022-10-07] MEDS: HYDROCODONE/ACETAMINOPHEN 5/325MG TABLET PO PRN ×2 (16:33→23:45)
[2022-10-07] MEDS: LABETALOL 5MG/ML SYR 20 MG/4 ML SYRINGE IV PRN (17:25)
[2022-10-07] MEDS: DIPHENHYDRAMINE 50MG/ML VIAL IV PRN (20:52)
[2022-10-07 21:00] LABS: CHLORIDE 97 mEq/L (98-107)
[2022-10-07] MEDS ORDERED: TERAZOSIN HCL 5MG CAPSULE PO SCH (21:00)
[2022-10-07] MEDS ORDERED: NALOXONE HCL 0.4MG/ML VIAL IV PRN (21:00)
[2022-10-07] MEDS: HYDRALAZINE HCL 50MG TABLET PO SCH (23:44)
[2022-10-08] MEDS ORDERED: GENTAMICIN 120MG PREMIX 100 ML IV NR (00:30)
[2022-10-08] MEDS: HYDROCODONE/ACETAMINOPHEN 5/325MG TABLET PO PRN ×3 (02:45→20:54)
[2022-10-08] MEDS: LABETALOL 5MG/ML SYR 20 MG/4 ML SYRINGE IV PRN (02:51)
[2022-10-08 04:00] VITALS: BP 183/97
[2022-10-08] MEDS: CLONIDINE 0.1MG TABLET PO PRN (04:27)
[2022-10-08] MEDS: HYDRALAZINE HCL 50MG TABLET PO SCH ×3 (06:01→22:53)
[2022-10-08] MEDS: NIFEDIPINE XL 60MG TAB PO SCH (07:04)
[2022-10-08 07:54] LABS: BASOPHILS % 1.1 % (0.0-2.0); EOSINOPHILS % 6.4 % (0.0-5.0); HEMATOCRIT. 21.7 % (42.0-52.0); HEMOGLOBIN. 7.5 g/dL (14.0-18.0); LYMPHOCYTES % 17.4 % (20.0-50.0); MEAN CORPUSCULAR VOLUME 89.4 fL (80.0-94.0); MEAN PLATELET VOLUME 7.7 fl (7.4-10.4); MONOCYTES % 9.9 % (2.0-8.0); NEUTROPHILS % 65.2 % (40.0-76.0); PLATELET 177 x1000/uL (130-400); RED BLOOD CELL COUNT 2.43 mill/uL (4.7-6.1); RED CELL DISTRIBUTION WIDTH 15.7 % (11.6-14.6)
[2022-10-08 08:00] VITALS: BP 191/105
[2022-10-08] MEDS: ATORVASTATIN CALCIUM 20MG TABLET PO SCH (09:38)
[2022-10-08] MEDS: CALCIUM ACETATE 667MG CAPSULE PO SCH ×3 (09:38→18:03)
[2022-10-08] MEDS: LABETALOL HCL 200MG TABLET PO SCH ×2 (09:38→20:54)
[2022-10-08 12:00] VITALS: BP 158/85
[2022-10-08] MEDS: CINACALCET HCL 90MG TABLET PO SCH (13:12)
[2022-10-08] MEDS: DILTIAZEM HCL 300MG CAPSULE SR 24HR PO SCH (13:13)
[2022-10-08 16:00] VITALS: BP 158/86
[2022-10-08 20:00] VITALS: BP 163/90
[2022-10-08] MEDS: DIPHENHYDRAMINE 50MG/ML VIAL IV PRN (20:53)
[2022-10-08] MEDS: TERAZOSIN HCL 5MG CAPSULE PO SCH (20:54)
[2022-10-09] VITALS (14 sets, daily range): BP systolic 125–208; BP diastolic 73–112
[2022-10-09] MEDS: HYDRALAZINE HCL 50MG TABLET PO SCH ×4 (05:29→21:02)
[2022-10-09] MEDS: DIPHENHYDRAMINE 50MG/ML VIAL IV PRN ×2 (05:33→21:02)
[2022-10-09] MEDS: HYDROCODONE/ACETAMINOPHEN 5/325MG TABLET PO PRN (05:33)
[2022-10-09] MEDS: CINACALCET HCL 90MG TABLET PO SCH (09:00)
[2022-10-09] MEDS: CALCIUM ACETATE 667MG CAPSULE PO SCH ×3 (09:18→17:21)
[2022-10-09] MEDS: LABETALOL HCL 200MG TABLET PO SCH ×2 (09:19→21:02)
[2022-10-09] MEDS: DILTIAZEM HCL 300MG CAPSULE SR 24HR PO SCH (09:19)
[2022-10-09] MEDS: ATORVASTATIN CALCIUM 20MG TABLET PO SCH (09:19)
[2022-10-09 09:59] LABS: BASOPHILS % 1.1 % (0.0-2.0); EOSINOPHILS % 9.5 % (0.0-5.0); HEMATOCRIT. 21.1 % (42.0-52.0); HEMOGLOBIN. 7.2 g/dL (14.0-18.0); LYMPHOCYTES % 16.7 % (20.0-50.0); MEAN CORPUSCULAR HEMOGLOBIN 30.6 pg (28.0-32.0); MEAN CORPUSCULAR VOLUME 89.4 fL (80.0-94.0); MEAN PLATELET VOLUME 7.7 fl (7.4-10.4); MONOCYTES % 11.2 % (2.0-8.0); NEUTROPHILS % 61.5 % (40.0-76.0); PLATELET 184 x1000/uL (130-400); RED BLOOD CELL COUNT 2.36 mill/uL (4.7-6.1); RED CELL DISTRIBUTION WIDTH 15.5 % (11.6-14.6)
[2022-10-09] MEDS ORDERED: LIDOCAINE HCL/PF 1% 10 MG/ML 5ML VIAL ONE (10:55)
[2022-10-09] MEDS ORDERED: GUAIFENESIN-DM 200MG-20MG/10ML UDC PO PRN (13:15)
[2022-10-09] MEDS ORDERED: GUAIFENESIN 200MG/10ML SUGAR FREE UDC PO PRN (13:45)
[2022-10-09] MEDS ORDERED: MORPHINE SULFATE 2 MG/ML CPJ (NOT FOR IM USE) IV NR (17:15)
[2022-10-09] MEDS: CLONIDINE 0.1MG TABLET PO PRN (21:02)
[2022-10-09] MEDS: TERAZOSIN HCL 5MG CAPSULE PO SCH (21:02)
[2022-10-09] MEDS: LABETALOL 5MG/ML SYR 20 MG/4 ML SYRINGE IV PRN (23:00)
[2022-10-10] VITALS: BP 169/88
[2022-10-10 04:00] VITALS: BP 174/92
[2022-10-10] MEDS: CLONIDINE 0.1MG TABLET PO PRN (04:11)
[2022-10-10] MEDS: HYDROCODONE/ACETAMINOPHEN 5/325MG TABLET PO PRN (04:11)
[2022-10-10] MEDS: DIPHENHYDRAMINE 50MG/ML VIAL IV PRN (04:17)
[2022-10-10 05:20] VITALS: BP 165/84
[2022-10-10 06:27] LABS: EOSINOPHILS % 7.3 % (0.0-5.0); HEMOGLOBIN. 7.2 g/dL (14.0-18.0); LYMPHOCYTES % 17.1 % (20.0-50.0); MEAN CORPUSCULAR HEMOGLOBIN 30.8 pg (28.0-32.0); MEAN CORPUSCULAR VOLUME 88.8 fL (80.0-94.0); MONOCYTES % 10.9 % (2.0-8.0); NEUTROPHILS % 63.7 % (40.0-76.0); PLATELET 193 x1000/uL (130-400); RED BLOOD CELL COUNT 2.33 mill/uL (4.7-6.1); RED CELL DISTRIBUTION WIDTH 15.5 % (11.6-14.6)
[2022-10-10] MEDS: HYDRALAZINE HCL 50MG TABLET PO SCH (06:38)
[2022-10-10 06:58] LABS: HEMATOCRIT. 20.7 % (42.0-52.0)
[2022-10-10 08:00] VITALS: BP 152/98
== END 2022-10-10 10:00 | disposition left against medical advice (07) | DRG 721 ==
LOC: ER 01:05 → 7EST 08:37 → EDBEDREQTM 08:39 → EDBEDREQ 08:39
PROVIDERS: ADMIT Internal Medicine; ATTEND Internal Medicine
PROC: 5A1D70Z Performance of Urinary Filtration, Intermittent, Less than 6 Hours Per Day (ICD-10-PCS; 2022-10-07)
PROC: 0JPT3XZ Removal of Tunneled Vascular Access Device from Trunk Subcutaneous Tissue and Fascia, Percutaneous Approach (ICD-10-PCS; 2022-10-07)
PROC: 02PY33Z Removal of Infusion Device from Great Vessel, Percutaneous Approach (ICD-10-PCS; 2022-10-07)
PROC: 02HV33Z Insertion of Infusion Device into Superior Vena Cava, Percutaneous Approach (ICD-10-PCS; principal; 2022-10-09)
PROC: B548ZZA Ultrasonography of Superior Vena Cava, Guidance (ICD-10-PCS; 2022-10-09)
PROC: 5A1D70Z Performance of Urinary Filtration, Intermittent, Less than 6 Hours Per Day (ICD-10-PCS; 2022-10-09)
PROC: 05JY3ZZ Inspection of Upper Vein, Percutaneous Approach (ICD-10-PCS; 2022-10-09)
DX: T80.211A Bloodstream infection due to central venous catheter, initial encounter (principal); U07.1 COVID-19; I31.39 Other pericardial effusion (noninflammatory); I12.0 Hypertensive chronic kidney disease with stage 5 chronic kidney disease or end stage renal disease; E11.22 Type 2 diabetes mellitus with diabetic chronic kidney disease; B96.89 Other specified bacterial agents as the cause of diseases classified elsewhere; D64.9 Anemia, unspecified; N18.6 End stage renal disease; E78.5 Hyperlipidemia, unspecified; Z99.2 Dependence on renal dialysis; I07.1 Rheumatic tricuspid insufficiency; Z53.29 Procedure and treatment not carried out because of patient's decision for other reasons; Z90.49 Acquired absence of other specified parts of digestive tract
CPT/HCPCS: 36415; 36556; 36589; 71045; 76937; 80048; 80170; 83605; 85025; 86705; 86709; 86803; 87070; 87340; 87426; 90935; 99285; C1752; C1769; C1887; C9803; J1200; J1580; J2270; J3490; L8514

== ENCOUNTER 2022-10-11 00:15 | Inpatient (IN) | payer OTHER ==
[~2022-10-11] VITALS: Ht 165.1 cm; Wt 76.2 kg
[2022-10-11 02:27] LABS: EOSINOPHILS % 5.6 % (0.0-5.0); HEMOGLOBIN. 7.1 g/dL (14.0-18.0); LYMPHOCYTES % 17.9 % (20.0-50.0); MEAN CORPUSCULAR HEMOGLOBIN 30.7 pg (28.0-32.0); MEAN CORPUSCULAR VOLUME 89.5 fL (80.0-94.0); MEAN PLATELET VOLUME 7.4 fl (7.4-10.4); MONOCYTES % 9.6 % (2.0-8.0); NEUTROPHILS % 65.9 % (40.0-76.0); PLATELET 213 x1000/uL (130-400); RED BLOOD CELL COUNT 2.31 mill/uL (4.7-6.1); RED CELL DISTRIBUTION WIDTH 15.8 % (11.6-14.6)
[2022-10-11 02:52] LABS: INR 1.1; PROTHROMBIN TIME 11.4 sec (9.6-11.0)
[2022-10-11 02:53] LABS: CHLORIDE 99 mEq/L (98-107)
[2022-10-11 03:10] LABS: HEMATOCRIT. 20.7 % (42.0-52.0)
[2022-10-11] MEDS ORDERED: ALPRAZOLAM 0.5 MG TABLET PO ONE (04:15)
[2022-10-11] MEDS ORDERED: HYDRALAZINE 20MG/ML VIAL IV PRN (08:30)
[2022-10-11] MEDS ORDERED: ONDANSETRON HCL 4MG/2ML INJ IV PRN (10:00)
[2022-10-11] MEDS ORDERED: ACETAMINOPHEN 325MG TABLET PO PRN (10:00)
[2022-10-11] MEDS ORDERED: NIFEDIPINE XL 60MG TAB PO SCH (10:00)
[2022-10-11 11:00] VITALS: BP_SYST 171; BP_SYST 228; BP_DIAS 115
[2022-10-11] MEDS: LABETALOL HCL 200MG TABLET PO SCH ×2 (11:13→21:01)
[2022-10-11] MEDS: HYDRALAZINE HCL 100MG TABLET PO SCH ×2 (14:51→21:02)
[2022-10-11 16:00] VITALS: BP 215/105
[2022-10-11 16:24] LABS: HEPATITIS B SURFACE ANTIGEN NEGATIVE
[2022-10-11 17:30] VITALS: BP 185/99
[2022-10-11] MEDS: CLONIDINE 0.2MG TABLET PO SCH (17:30)
[2022-10-11] MEDS ORDERED: DIPHENHYDRAMINE 50MG CAPSULE PO PRN (20:30)
[2022-10-11] MEDS ORDERED: TERAZOSIN HCL 5MG CAPSULE PO SCH (21:00)
[2022-10-11] MEDS ORDERED: GENTAMICIN 120MG PREMIX 100 ML IV NR (22:00)
[2022-10-11 23:11] VITALS: BP 173/94
[2022-10-11] MEDS: DIPHENHYDRAMINE 50MG/ML VIAL IV PRN (23:13)
[2022-10-12] VITALS (10 sets, daily range): BP systolic 120–184; BP diastolic 61–99
[2022-10-12] MEDS: HYDRALAZINE HCL 100MG TABLET PO SCH ×2 (05:25→15:39)
[2022-10-12 06:45] LABS: EOSINOPHILS % 6.2 % (0.0-5.0); HEMOGLOBIN. 7.3 g/dL (14.0-18.0); LYMPHOCYTES % 16.1 % (20.0-50.0); MEAN CORPUSCULAR HEMOGLOBIN 31.4 pg (28.0-32.0); MEAN PLATELET VOLUME 7.9 fl (7.4-10.4); MONOCYTES % 5.2 % (2.0-8.0); NEUTROPHILS % 71.5 % (40.0-76.0); PLATELET 229 x1000/uL (130-400); RED BLOOD CELL COUNT 2.32 mill/uL (4.7-6.1); RED CELL DISTRIBUTION WIDTH 15.7 % (11.6-14.6)
[2022-10-12] MEDS: DIPHENHYDRAMINE 50MG/ML VIAL IV PRN (06:54)
[2022-10-12 06:59] LABS: HEMATOCRIT. 20.9 % (42.0-52.0)
[2022-10-12] MEDS ORDERED: ATORVASTATIN CALCIUM 20MG TABLET PO SCH (09:00)
[2022-10-12] MEDS ORDERED: NIFEDIPINE XL 60MG TAB PO SCH (09:00)
[2022-10-12] MEDS: CINACALCET HCL 90MG TABLET PO SCH ×2 (09:00→09:05)
[2022-10-12] MEDS: LABETALOL HCL 200MG TABLET PO SCH (09:04)
[2022-10-12] MEDS: CLONIDINE 0.2MG TABLET PO SCH ×2 (09:06→17:15)
[2022-10-12] MEDS ORDERED: ALPRAZOLAM 0.5 MG TABLET PO PRN (12:00)
[2022-10-12] MEDS ORDERED: FLUOXETINE HCL 10 MG CAPSULE PO SCH (12:00)
[2022-10-12] MEDS ORDERED: DIPHENHYDRAMINE 50MG CAPSULE PO PRN (12:30)
== END 2022-10-12 21:28 | disposition home or self-care (01) | DRG 470 ==
LOC: ER 00:15 → 7EST 05:00 → EDBEDREQTM 05:08 → EDBEDREQ 05:08
PROVIDERS: ADMIT Internal Medicine; ATTEND Internal Medicine
PROC: 5A1D70Z Performance of Urinary Filtration, Intermittent, Less than 6 Hours Per Day (ICD-10-PCS; principal; 2022-10-12)
DX: I12.0 Hypertensive chronic kidney disease with stage 5 chronic kidney disease or end stage renal disease (principal); U07.1 COVID-19; N18.6 End stage renal disease; E44.1 Mild protein-calorie malnutrition; D63.1 Anemia in chronic kidney disease; E11.22 Type 2 diabetes mellitus with diabetic chronic kidney disease; E78.5 Hyperlipidemia, unspecified; F32.9 Major depressive disorder, single episode, unspecified; I25.2 Old myocardial infarction; Z79.899 Other long term (current) drug therapy; Z99.2 Dependence on renal dialysis; Z91.15 Patient's noncompliance with renal dialysis; Z68.28 Body mass index [BMI] 28.0-28.9, adult; Z79.84 Long term (current) use of oral hypoglycemic drugs
CPT/HCPCS: 36415; 71045; 80053; 83880; 84484; 85025; 86705; 86709; 86803; 87340; 87426; 90935; 93005; 99285; C9803; J0360; J1200; J1580; Q0163

== ENCOUNTER 2022-10-19 08:13 | Inpatient (IN) | payer OTHER ==
[~2022-10-19] VITALS: Ht 165.1 cm; Wt 75.5 kg
[2022-10-19] VITALS (16 sets, daily range): BP systolic 166–218; BP diastolic 87–114
[2022-10-19 09:23] LABS: BASOPHILS % 1.7 % (0.0-2.0); EOSINOPHILS % 7.3 % (0.0-5.0); LYMPHOCYTES % 17.5 % (20.0-50.0); MEAN CORPUSCULAR HEMOGLOBIN 30.3 pg (28.0-32.0); MEAN CORPUSCULAR VOLUME 90.4 fL (80.0-94.0); MEAN PLATELET VOLUME 7.3 fl (7.4-10.4); MONOCYTES % 8.6 % (2.0-8.0); NEUTROPHILS % 64.9 % (40.0-76.0); PLATELET 199 x1000/uL (130-400); RED BLOOD CELL COUNT 2.14 mill/uL (4.7-6.1); RED CELL DISTRIBUTION WIDTH 16.2 % (11.6-14.6)
[2022-10-19] MEDS ORDERED: HYDROCODONE/ACETAMINOPHEN 5/325MG TABLET PO ONE (09:30)
[2022-10-19] MEDS ORDERED: NIFEDIPINE XL 90MG TAB PO ONE (09:30)
[2022-10-19] MEDS ORDERED: LABETALOL HCL 100MG TABLET PO ONE (09:30)
[2022-10-19 09:31] LABS: CHLORIDE 103 mEq/L (98-107)
[2022-10-19 09:37] LABS: HEMATOCRIT. 19.4 % (42.0-52.0); HEMOGLOBIN. 6.5 g/dL (14.0-18.0)
[2022-10-19 09:38] LABS: PARTIAL THROMBOPLASTIN TIME 29.9 sec (23.4-31.0); PROTHROMBIN TIME 11.2 sec (9.6-11.0)
[2022-10-19] MEDS ORDERED: LIDOCAINE HCL 1% 10 MG/ML 10ML VIAL ONE (10:52)
[2022-10-19] MEDS ORDERED: HEPARIN 1000 UNITS/ML 10ML ONE (10:52)
[2022-10-19] MEDS ORDERED: CEFAZOLIN 1000MG PREMIX 50 ML IV ONE (11:25)
[2022-10-19] MEDS ORDERED: CEFAZOLIN 1000MG PREMIX 50 ML IV NR (11:30)
[2022-10-19] MEDS ORDERED: FENTANYL CITRATE/PF 50MCG/ML 2ML VIAL ONE (11:36)
[2022-10-19] MEDS ORDERED: IOHEXOL-300 50 ML BOTTLE IV ONE (11:46)
[2022-10-19] MEDS ORDERED: FENTANYL CITRATE/PF 50MCG/ML 2ML VIAL IV NR (12:00)
[2022-10-19] MEDS ORDERED: GENTAMICIN 120MG PREMIX 100 ML IV NR (12:15)
[2022-10-19 13:46] LABS: HEPATITIS B SURFACE ANTIGEN NEGATIVE
[2022-10-19] MEDS ORDERED: MORPHINE SULFATE 4 MG/ML CPJ (NOT FOR IM USE) IV ONE (14:30)
[2022-10-19] MEDS ORDERED: ONDANSETRON HCL 4MG/2ML INJ IV ONE (14:45)
[2022-10-19] MEDS: HYDRALAZINE HCL 50MG TABLET PO SCH ×2 (14:54→21:01)
[2022-10-19] MEDS: HYDRALAZINE 20MG/ML VIAL IV PRN (16:35)
[2022-10-19] MEDS: LABETALOL HCL 200MG TABLET PO SCH (16:37)
[2022-10-19] MEDS ORDERED: ONDANSETRON HCL 4MG/2ML INJ IV PRN (17:30)
[2022-10-19] MEDS ORDERED: DOCUSATE SODIUM 100MG CAPSULE PO PRN (17:30)
[2022-10-19] MEDS ORDERED: ACETAMINOPHEN 325MG TABLET PO PRN (17:30)
[2022-10-19] MEDS ORDERED: IPRATROPIUM/ALBUTEROL 0.5-3(2.5)MG/3ML NEB HHN PRN (17:30)
[2022-10-19] MEDS ORDERED: LORAZEPAM 0.5MG TABLET PO PRN (17:30)
[2022-10-19] MEDS ORDERED: NALOXONE HCL 0.4MG/ML VIAL IV PRN (17:45)
[2022-10-19] MEDS: TERAZOSIN HCL 5MG CAPSULE PO SCH (21:02)
[2022-10-19] MEDS: HYDROCODONE/ACETAMINOPHEN 5/325MG TABLET PO PRN (21:07)
[2022-10-20] VITALS (17 sets, daily range): BP systolic 154–221; BP diastolic 68–114
[2022-10-20 02:04] LABS: HEMOGLOBIN 6.9 g/dL (14.0-18.0)
[2022-10-20 02:05] LABS: HEMATOCRIT 20.1 % (42.0-52.0)
[2022-10-20] MEDS: CLONIDINE 0.1MG TABLET PO PRN ×2 (02:51→10:53)
[2022-10-20] MEDS: HYDROCODONE/ACETAMINOPHEN 5/325MG TABLET PO PRN ×2 (03:03→18:18)
[2022-10-20] MEDS: HYDRALAZINE HCL 50MG TABLET PO SCH ×3 (05:01→21:13)
[2022-10-20 07:26] LABS: BASOPHILS % 1.5 % (0.0-2.0); EOSINOPHILS % 8.1 % (0.0-5.0); LYMPHOCYTES % 16.5 % (20.0-50.0); MEAN CORPUSCULAR HEMOGLOBIN 30.9 pg (28.0-32.0); MEAN CORPUSCULAR VOLUME 90.3 fL (80.0-94.0); MEAN PLATELET VOLUME 7.6 fl (7.4-10.4); MONOCYTES % 8.3 % (2.0-8.0); NEUTROPHILS % 65.6 % (40.0-76.0); PLATELET 179 x1000/uL (130-400); RED BLOOD CELL COUNT 2.23 mill/uL (4.7-6.1); RED CELL DISTRIBUTION WIDTH 16.2 % (11.6-14.6)
[2022-10-20 07:58] LABS: HEMOGLOBIN. 6.9 g/dL (14.0-18.0)
[2022-10-20 07:59] LABS: HEMATOCRIT. 20.1 % (42.0-52.0)
[2022-10-20] MEDS ORDERED: DIPHENHYDRAMINE 50MG/ML VIAL IV NR (09:00)
[2022-10-20] MEDS: HYDRALAZINE 20MG/ML VIAL IV PRN (10:01)
[2022-10-20] MEDS ORDERED: HYDR-4135 PO (12:15)
[2022-10-20] MEDS: LABETALOL HCL 200MG TABLET PO SCH ×2 (12:44→17:58)
[2022-10-20] MEDS: ACETAMINOPHEN 325MG TABLET PO PRN ×2 (12:44→18:18)
[2022-10-20] MEDS ORDERED: NIFEDIPINE XL 60MG TAB PO SCH (16:00)
[2022-10-20 16:01] LABS: HEMOGLOBIN 7.9 g/dL (14.0-18.0)
[2022-10-20 16:09] LABS: PROTHROMBIN TIME 11.2 sec (9.6-11.0)
[2022-10-20] MEDS: DILTIAZEM HCL 90MG TABLET PO SCH ×2 (16:46→22:39)
[2022-10-20] MEDS: TERAZOSIN HCL 5MG CAPSULE PO SCH (21:13)
[2022-10-20] MEDS: DIPHENHYDRAMINE 50MG/ML VIAL IV PRN (22:39)
[2022-10-21] VITALS: BP 178/82
[2022-10-21] MEDS: CLONIDINE 0.1MG TABLET PO PRN (00:19)
[2022-10-21] MEDS: HYDROCODONE/ACETAMINOPHEN 5/325MG TABLET PO PRN ×2 (00:19→05:17)
[2022-10-21 04:00] VITALS: BP 169/88
[2022-10-21] MEDS: HYDRALAZINE HCL 50MG TABLET PO SCH ×2 (05:13→13:33)
[2022-10-21] MEDS: DILTIAZEM HCL 90MG TABLET PO SCH ×2 (05:13→13:32)
[2022-10-21 08:00] VITALS: BP 120/75
[2022-10-21] MEDS: LABETALOL HCL 200MG TABLET PO SCH (08:30)
[2022-10-21] MEDS: DIPHENHYDRAMINE 50MG/ML VIAL IV PRN (08:30)
[2022-10-21 12:00] VITALS: BP 170/85
[2022-10-21 16:03] VITALS: BP 140/60
== END 2022-10-21 16:45 | disposition home or self-care (01) | DRG 206 ==
LOC: ER 08:13 → EDBEDREQ 10:52 → 7EST 11:52 → EDBEDREQ 11:55 → EDBEDREQSVC 11:55 → EDBEDREQTM 11:55 → ENRESERV 16:27 → 7EST 17:56
PROVIDERS: ADMIT Internal Medicine; ATTEND Internal Medicine
PROC: 30233N1 Transfusion of Nonautologous Red Blood Cells into Peripheral Vein, Percutaneous Approach (ICD-10-PCS; principal; 2022-10-19)
PROC: 0JH63XZ Insertion of Tunneled Vascular Access Device into Chest Subcutaneous Tissue and Fascia, Percutaneous Approach (ICD-10-PCS; 2022-10-19)
PROC: 05HP33Z Insertion of Infusion Device into Right External Jugular Vein, Percutaneous Approach (ICD-10-PCS; 2022-10-19)
PROC: B5131ZA Fluoroscopy of Right Jugular Veins using Low Osmolar Contrast, Guidance (ICD-10-PCS; 2022-10-19)
PROC: 5A1D70Z Performance of Urinary Filtration, Intermittent, Less than 6 Hours Per Day (ICD-10-PCS; 2022-10-20)
DX: T82.838A Hemorrhage due to vascular prosthetic devices, implants and grafts, initial encounter (principal); I12.0 Hypertensive chronic kidney disease with stage 5 chronic kidney disease or end stage renal disease; D63.1 Anemia in chronic kidney disease; E11.22 Type 2 diabetes mellitus with diabetic chronic kidney disease; N18.6 End stage renal disease; E78.5 Hyperlipidemia, unspecified; Z20.822 Contact with and (suspected) exposure to COVID-19; I07.1 Rheumatic tricuspid insufficiency; I16.1 Hypertensive emergency; Z99.2 Dependence on renal dialysis; Z90.49 Acquired absence of other specified parts of digestive tract; Y84.9 Medical procedure, unspecified as the cause of abnormal reaction of the patient, or of later complication, without mention of misadventure at the time of the procedure; Y92.89 Other specified places as the place of occurrence of the external cause
CPT/HCPCS: 36415; 36558; 36589; 76937; 77001; 80048; 80053; 80170; 85014; 85018; 85025; 85049; 85384; 86705; 86709; 86803; 86850; 86900; 86920; 87340; 87426; 90935; 99152; 99153; 99285; C1725; C1750; C1766; C1769; C1887; C9803; J0360; J0690; J1200; J1580; J1644; J2270; J2405; J3010; J3490; P9016; Q9967; G0500

== ENCOUNTER 2022-12-29 10:31 | Emergency (ER) | payer MEDICAID, OTHER ==
[~2022-12-29] VITALS: Ht 167.6 cm; Wt 73.0 kg
[~2022-12-29 10:31] MED LIST changes: -CLON0.2T PO; +DILT360C27 MT; -FURO-151 PO; +HYDR100T26 PO; +LOSA100T32 MT; -LOSA50TA3 PO; -METO-539 PO; -MINO2.5T19 PO; +MINO2.5T2 MT; -NIFE-32 PO
[2022-12-29] MEDS ORDERED: EPINEPHRINE 5 MG in SODIUM CHLORIDE 0.9% 245 ML IV PRN ×2 (11:15→11:30)
[2022-12-29] MEDS ORDERED: SODIUM CHLORIDE 0.9% 1,000 ML IV ONE (11:15)
[2022-12-29] MEDS ORDERED: CALCIUM GLUCONATE 1GM PREMIX 50 ML IV ONE ×3 (11:15→12:00)
[2022-12-29 11:45] LABS: BASOPHILS % 0.7 % (0.0-2.0); EOSINOPHILS % 3.8 % (0.0-5.0); HEMATOCRIT. 30.2 % (42.0-52.0); HEMOGLOBIN. 10.1 g/dL (14.0-18.0); LYMPHOCYTES % 8.2 % (20.0-50.0); MEAN CORPUSCULAR HEMOGLOBIN 32.2 pg (28.0-32.0); MEAN CORPUSCULAR VOLUME 96.1 fL (80.0-94.0); MEAN PLATELET VOLUME 7.8 fl (7.4-10.4); MONOCYTES % 8.7 % (2.0-8.0); NEUTROPHILS % 78.6 % (40.0-76.0); PLATELET 170 x1000/uL (130-400); RED BLOOD CELL COUNT 3.15 mill/uL (4.7-6.1); RED CELL DISTRIBUTION WIDTH 19.7 % (11.6-14.6)
[2022-12-29 11:52] LABS: CHLORIDE 101 mEq/L (98-107)
[2022-12-29] MEDS ORDERED: GLUCAGON,HUMAN RECOMBINANT 1MG/VIAL IV ONE ×2 (12:00)
[2022-12-29] MEDS ORDERED: ONDANSETRON HCL 4MG/2ML INJ IV ONE (12:45)
[2022-12-29 13:20] VITALS: BP 96/51
[2022-12-29 15:12] LABS: HEPATITIS B SURFACE ANTIGEN NEGATIVE
== END 2022-12-29 15:24 | disposition left against medical advice (07) ==
LOC: ER 10:31 → EDBEDREQ 14:20 → ER 15:24 → CANBEDREQ 12-31 16:43
DX: T46.1X1A Poisoning by calcium-channel blockers, accidental (unintentional), initial encounter (principal); I10 Essential (primary) hypertension; Z79.82 Long term (current) use of aspirin; Z79.899 Other long term (current) drug therapy; Y92.9 Unspecified place or not applicable
CPT/HCPCS: 36415; 80053; 84484; 85025; 86705; 86709; 86803; 87340; 93005; 96374; 96375; 99291; J0610; J1610; J2405; J3490; J7030; J7050; Z7610

== ENCOUNTER 2023-01-10 12:48 | Emergency (ER) | payer MEDICAID, OTHER ==
[~2023-01-10] VITALS: Ht 170.2 cm; Wt 72.0 kg
[2023-01-10] MEDS ORDERED: GLUCAGON,HUMAN RECOMBINANT 1MG/VIAL IV ONE (13:15)
[2023-01-10] MEDS ORDERED: ONDANSETRON HCL 4MG/2ML INJ IV ONE (13:15)
[2023-01-10] MEDS ORDERED: SODIUM CHLORIDE 0.9% 1,000 ML IV ONE (13:15)
[2023-01-10 13:47] LABS: BASOPHILS % 0.7 % (0.0-2.0); EOSINOPHILS % 4.8 % (0.0-5.0); HEMATOCRIT. 38.7 % (42.0-52.0); HEMOGLOBIN. 12.6 g/dL (14.0-18.0); LYMPHOCYTES % 10.3 % (20.0-50.0); MEAN CORPUSCULAR HEMOGLOBIN 31.7 pg (28.0-32.0); MEAN CORPUSCULAR VOLUME 97.5 fL (80.0-94.0); MEAN PLATELET VOLUME 7.4 fl (7.4-10.4); MONOCYTES % 6.6 % (2.0-8.0); NEUTROPHILS % 77.6 % (40.0-76.0); PLATELET 236 x1000/uL (130-400); RED BLOOD CELL COUNT 3.97 mill/uL (4.7-6.1); RED CELL DISTRIBUTION WIDTH 22.6 % (11.6-14.6)
[2023-01-10 13:55] LABS: CHLORIDE 102 mEq/L (98-107)
[2023-01-10 13:58] LABS: INR 1.1; PROTHROMBIN TIME 11.3 sec (9.6-11.0)
[2023-01-10 14:06] LABS: PLATELET ESTIMATE NORMAL
[2023-01-10] MEDS ORDERED: CALCIUM CHLORIDE 1GM/10ML SYR IV NR (14:30)
[2023-01-10] MEDS ORDERED: SODIUM POLYSTYRENE SULFONATE 15 G/60 ML BOT PO NR (14:30)
[2023-01-10] MEDS ORDERED: ALBUTEROL (0.083%) 2.5MG/3ML NEB HHN NR (14:30)
[2023-01-10] MEDS ORDERED: DEXTROSE 50% WATER 50ML SYRINGE IV NR (14:30)
[2023-01-10] MEDS ORDERED: INSULIN REGULAR (HUMULIN R) 300UNITS/3ML VIAL IV NR (14:30)
[2023-01-10] MEDS ORDERED: SODIUM BICARBONATE 8.4% 1 MEQ/ML 50ML SYR IV NR (14:30)
[2023-01-10] MEDS ORDERED: HYDROCODONE/ACETAMINOPHEN 5/325MG TABLET PO ONE (14:45)
[2023-01-10 17:00] VITALS: BP 182/93
[2023-01-10] MEDS ORDERED: IPRATROPIUM/ALBUTEROL 0.5-3(2.5)MG/3ML NEB HHN PRN (19:15)
[2023-01-10] MEDS ORDERED: ONDANSETRON HCL 4MG/2ML INJ IV PRN (19:15)
[2023-01-10] MEDS ORDERED: HYDRALAZINE 20MG/ML VIAL IV PRN (19:15)
[2023-01-10] MEDS ORDERED: ACETAMINOPHEN 325MG TABLET PO PRN (19:15)
[2023-01-10] MEDS ORDERED: DIPHENHYDRAMINE 50MG/ML VIAL IV PRN (19:15)
== END 2023-01-10 23:00 | disposition left against medical advice (07) ==
LOC: ER 12:48 → EDBEDREQSVC 16:05 → EDBEDREQ 16:05 → ER 23:00 → CANBEDREQ 01-12 02:45
DX: E87.5 Hyperkalemia (principal); R00.1 Bradycardia, unspecified; I24.9 Acute ischemic heart disease, unspecified; I12.0 Hypertensive chronic kidney disease with stage 5 chronic kidney disease or end stage renal disease; N18.6 End stage renal disease; Z99.2 Dependence on renal dialysis; F17.200 Nicotine dependence, unspecified, uncomplicated
CPT/HCPCS: 36415; 71045; 80053; 82962; 84484; 85025; 85610; 93970; 94640; 96361; 96374; 96375; 99291; J1610; J1815; J2405; J3490; J7030; Z7610

== ENCOUNTER 2023-02-25 17:39 | Emergency (ER) | payer MEDICAID, OTHER ==
[~2023-02-25] VITALS: Ht 170.2 cm; Wt 85.0 kg
[2023-02-25 17:48] VITALS: BP 140/92
== END 2023-02-25 19:58 | disposition left against medical advice (07) ==
LOC: ER 17:39
DX: Z53.21 Procedure and treatment not carried out due to patient leaving prior to being seen by health care provider (principal)
CPT/HCPCS: 99281